=== PATIENT | male | born 1985 | race Caucasian/White ===

== ENCOUNTER 2017-05-31 18:04 | Emergency (ER) | payer OTHER ==
[~2017-05-31] VITALS: Ht 180.3 cm; Wt 70.0 kg
[2017-05-31 18:05] VITALS: TEMP 36.7; Ht 180.3 cm; Wt 70.0 kg
[2017-05-31] MEDS ORDERED: ONDANSETRON INJ 2 MG/ML 2 ML VIAL IV STA (18:14)
[2017-05-31] MEDS ORDERED: GI COCKTAIL PO STA (18:14)
[2017-05-31] MEDS ORDERED: SODIUM CHLORIDE 0.9% 1000ML 1,000 ML IV STA (18:14)
--- NOTE | 2017-05-31 18:36 | EMERGENCY ROOM VISIT NOTE ---
History Report prepared by Param: Basil Rebollar Under the Supervision of: Dr. Moi Fragoso M.D. First contact with patient: 18:09 Chief Complaint: CHEST PAIN Stated Complaint: PAIN IN CHEST,INABILITY TO EAT History of Present Illness The patient is a 32 year old male who presents to the Emergency Room with complaints of constant left sided chest pain beginning 10 weeks ago. The patient states that his pain is centralized in his lower left chest. He notes that his pain has prevented him from eating a lot for the past 10 weeks. He reports that the pain is not major, but states that the pain is enough to prevent him from eating. He notes that his pain is not mental but feels as though he has "poison in his blood stream." He reports that he has been able to drink fluids. He also complains of SOB, nausea, numbness in his left arm, and vision issues in his eyes. The patient states that he occasionally has a "light spot" right in the center of his eyes that blurs his vision. He notes chronic pain in his joints for the past few years that waxes and wanes in intensity. 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 He denies any rashes, cough, burning or bloody urine, congestion, diarrhea, and exposure to ticks. Source of History: patient Onset: 10 weeks ago Position: chest Timing: constant Modifying Factors (Worsening): eating Associated Symptoms: + SOB, + nausea, + numbness (in his left arm), No cough , No diarrhea, No urinary symptoms Note: he also complains of vision problems. he denies any congestion and rashes Review of Systems See HPI for pertinent positives and negatives. A total of ten systems were reviewed and were otherwise negative. Past Medical & Surgical Medical Problems: (1) Chronic pain Family History No pertinent family history stated. Social History Smoking Status: Never Smoker Marital Status: single Housing Status: lives with family Occupation Status: unemployed Current/Historical Medications Scheduled Doxycycline Monohydrate (Monodox), 100 MG PO BID Scheduled PRN Ibuprofen Tab (Motrin), 800 MG PO Q8H PRN for Pain Allergies Coded Allergies: No Known Allergies (Unverified , 05/31/17) Physical Exam Vital Signs Date Time Temp Pulse Resp B/P (MAP) Pulse Ox O2 Delivery O2 Flow Rate FiO2 05/31/17 23:19 72 16 126/84 97 05/31/17 22:31 80 20 127/83 97 05/31/17 21:00 93 23 126/87 95 Room Air 05/31/17 19:12 79 05/31/17 18:55 100 Room Air 05/31/17 18:47 84 18 128/82 97 Room Air 05/31/17 18:05 36.7 118 16 144/91 99 Room Air Physical Exam GENERAL: Awake, alert, in no acute distress, anxious appearing. HENT: Normocephalic, atraumatic. Oropharynx unremarkable. Dry mucous membranes. EYES: Normal conjunctiva. Sclera non-icteric. NECK: Supple. No nuchal rigidity. FROM. No JVD. RESPIRATORY: Clear to auscultation. CARDIAC: Regular rate, normal rhythm. Extremities warm and well perfused. Pulses equal. ABDOMEN: Soft, non-distended. No tenderness to palpation. No rebound or guarding. No masses. RECTAL: Deferred. MUSCULOSKELETAL: Chest examination reveals no tenderness. The back is symmetrical on inspection without obvious abnormality. There is no CVA tenderness to palpation. No joint edema. LOWER EXTREMITIES: Calves are equal size bilaterally and non-tender. No edema. No discoloration. NEURO: Normal sensorium. No sensory or motor deficits noted. SKIN: No rash or jaundice noted. Medical Decision & Procedures ER Provider Diagnostic Interpretation: Radiology results as stated below per my review and radiologist interpretation: CHEST ONE VIEW PORTABLE FINDINGS: Lung volumes are normal. Lungs are clear. No pneumothorax or pleural effusion is present. Cardiomediastinal silhouette is normal. Pulmonary vascularity is normal. IMPRESSION: No acute cardiopulmonary findings. Electronically signed by: Luis Carlos Lema M.D. 05/31/2017 6:59 PM HEAD WITHOUT CONTRAST (CT) FINDINGS: No acute intracranial hemorrhage, midline shift, mass, large territorial ischemia or abnormal extra-axial collection. The calvarium is intact. The paranasal sinuses, mastoid air cells, and middle ear cavities are clear. Focal soft tissue prominence of the right frontal scalp is seen, 2.0 x 0.8 cm with areas of internal fatty attenuation suggesting scalp lipoma. IMPRESSION: 1. No acute intracranial abnormality. 2. Focal soft tissue prominence of the right frontal scalp with fat attenuation suggests scalp lipoma. The above report was generated using voice recognition software. It may contain grammatical, syntax or spelling errors. Electronically signed by: Bimal Cason M.D. 05/31/2017 7:36 PM Laboratory Results 05/31/17 18:40 Red Blood Count 5.69, Mean Corpuscular Volume 84.7, Mean Corpuscular Hemoglobin 28.8, Mean Corpuscular Hemoglobin Concent 34.0, Mean Platelet Volume 9.7, Neutrophils (%) (Auto) 63.9, Lymphocytes (%) (Auto) 25.7, Monocytes (%) (Auto) 9.6, Eosinophils (%) (Auto) 0.4, Basophils (%) (Auto) 0.3, Neutrophils # (Auto) 4.52, Lymphocytes # (Auto) 1.82, Monocytes # (Auto) 0.68, Eosinophils # (Auto) 0.03, Basophils # (Auto) 0.02 05/31/17 18:40 Test 05/31/17 18:40 05/31/17 19:50 White Blood Count 7.08 K/uL (4.8-10.8) Red Blood Count 5.69 M/uL (4.7-6.1) Hemoglobin 16.4 g/dL (14.0-18.0) Hematocrit 48.2 % (42-52) Mean Corpuscular Volume 84.7 fL (80-100) Mean Corpuscular Hemoglobin 28.8 pg (25-34) Mean Corpuscular Hemoglobin Concent 34.0 g/dl (32-36) Platelet Count 248 K/uL (130-400) Mean Platelet Volume 9.7 fL (7.4-10.4) Neutrophils (%) (Auto) 63.9 % Lymphocytes (%) (Auto) 25.7 % Monocytes (%) (Auto) 9.6 % Eosinophils (%) (Auto) 0.4 % Basophils (%) (Auto) 0.3 % Neutrophils # (Auto) 4.52 K/uL (1.4-6.5) Lymphocytes # (Auto) 1.82 K/uL (1.2-3.4) Monocytes # (Auto) 0.68 K/uL (0.11-0.59) Eosinophils # (Auto) 0.03 K/uL (0-0.5) Basophils # (Auto) 0.02 K/uL (0-0.2) RDW Standard Deviation 37.7 fL (36.4-46.3) RDW Coefficient of Variation 12.4 % (11.5-14.5) Immature Granulocyte % (Auto) 0.1 % Immature Granulocyte # (Auto) 0.01 K/uL (0.00-0.02) Erythrocyte Sedimentation Rate 2 mm/hr (0-14) Anion Gap 9.0 mmol/L (3-11) Est Creatinine Clear Calc Drug Dose 92.9 ml/min Estimated GFR () 99.1 Estimated GFR (Non- 85.5 BUN/Creatinine Ratio 15.2 (10-20) Calcium Level 9.8 mg/dl (8.5-10.1) Total Bilirubin 0.7 mg/dl (0.2-1) Direct Bilirubin 0.2 mg/dl (0-0.2) Aspartate Amino Transf (AST/SGOT) 14 U/L (15-37) Alanine Aminotransferase (ALT/SGPT) 18 U/L (12-78) Alkaline Phosphatase 40 U/L (45-117) Troponin I < 0.015 ng/ml (0-0.045) C-Reactive Protein < 0.29 mg/dl (0-0.29) Total Protein 7.7 gm/dl (6.4-8.2) Albumin 4.8 gm/dl (3.4-5.0) Lipase 115 U/L (73-393) Thyroid Stimulating Hormone (TSH) 1.760 uIu/ml (0.300-4.500) Lyme Disease IgG Antibody POS (NEG) Urine Color YELLOW Urine Appearance CLEAR (CLEAR) Urine pH 6.0 (4.5-7.5) Urine Specific [place] 1.029 (1.000-1.030) Urine Protein NEG (NEG) Urine Glucose (UA) NEG (NEG) Urine Ketones 4+ (NEG) Urine Occult Blood NEG (NEG) Urine Nitrite NEG (NEG) Urine Bilirubin NEG (NEG) Urine Urobilinogen NEG (NEG) Urine Leukocyte Esterase NEG (NEG) Laboratory results reviewed by me Medications Administered Medications (Trade) Dose Ordered Sig/Jeny Route Start Time Stop Time Status Last Admin Dose Admin Sodium Chloride 1,000 ml @ 999 mls/hr Q1H1M STAT IV 05/31/17 18:14 05/31/17 19:14 DC 05/31/17 18:43 999 MLS/HR Famotidine (Pepcid 20mg Iv Push) 20 mg NOW STAT IV 05/31/17 18:14 05/31/17 18:25 DC 05/31/17 19:40 20 MG Ondansetron HCl (Zofran Inj) 4 mg NOW STAT IV 05/31/17 18:14 05/31/17 18:25 DC 05/31/17 18:43 4 MG Lidocaine HCl (Viscous Lidocaine 2% Soln) 20 ml STK-MED ONCE .ROUTE 05/31/17 18:41 05/31/17 18:42 DC 05/31/17 18:44 20 ML Al Hydroxide/Mg Hydroxide (Maalox Susp) 30 ml STK-MED ONCE .ROUTE 05/31/17 18:41 05/31/17 18:42 DC 05/31/17 18:44 30 ML Ketorolac Tromethamine (Toradol Inj) 30 mg NOW STAT IV 05/31/17 20:40 05/31/17 20:42 DC 05/31/17 20:52 30 MG Ceftriaxone Sodium 2000 mg/ Dextrose 70 ml @ 100 mls/hr ONE STAT IV 05/31/17 20:40 05/31/17 21:21 DC 05/31/17 20:51 100 MLS/HR ECG Indication: chest pain Rate (beats per minute): 87 Rhythm: normal sinus Findings: no acute ischemic change, other (normal axis) ED Course 1812: The patient was evaluated in room C6. A complete history and physical exam was performed. 1813: GI Cocktail 24ml PO, Zofran Inj 4mg IV, Famotidine 20mg IV 1848: I did a bedside echo and gallbladder US on the patient. The echo showed no pericardial effusion and normal LV and RV size effusion. The gallbladder US showed no gallstones or pericholecystic fluid. 2029: I reevaluated and updated the patient. He states that the body pain that he has been experiencing for the past few years has mostly been migrating joint pain. He notes that his chest pain is new. 2039: Ceftriaxone Sodium 2000mg/Dextrose 70 ml @ 100mls/hr IV, Toradol Inj 30mg IV 2210: I reevaluated the patient. Discussed results and discharge instructions: He verbalized understanding and agreement. The patient is ready for discharge. Medical Decision I reviewed the patient's past medical history, medications, and the nursing notes as described above. Differential diagnoses include: gastritis, reflux, pneumonia, bronchitis, pneumonitis, pericarditis, lyme, dehydration, electrolyte abnormality, depression, and anxiety. 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 Of note the patient reports that he is a long- standing history for years of chronic pain everywhere and is somewhat vague about the last time he did not have any pain but thinks a few months ago hes had a couple days here and there. Despite this hes never seen a doctor for his symptoms and comes to emergency department today because he feels he was worse and thought it was about time he was evaluated. Arrival the patient is anxious appearing but otherwise in no acute distress, afebrile with stable vital signs. Lungs clear to auscultation bilaterally. EKG unremarkable with normal intervals and no MO depression or ARLYN. Negative Spodick's sign. Bedside echo with no pericardial effusion, grossly normal LV and RV size and function. Bedside RUQ US negative for gallstone and negative for pericholecystic fluid. WBC, trop, ESR, CRP wnl. Thus myocarditis and pericarditis unlikely. However, Lyme screen positive and given patient's constant sx of chest burning will need cards f/u for formal echo. Cardiac CRP sent and pending. UA with ketones c/w patient clinically dry appearance. Labs otherwise unremarkable. CXR negative. Will treat for Lyme with 21 day course. Given initial IV dose of CTX in ED. CM assisting to arrange follow up given patient does not have insurance and does not have a pcp. However patient preferring to arrange f/u on his own. Parents at bedside update and are aware. Findings and plan/importance for follow-up reviewed with patient. Patient agreeable and d/c'd per discharge instructions. [place] Drug Monitoring Program Search Results: patient reviewed within database Blood Pressure Screening Patient's blood pressure: Elevated blood pressure Blood pressure disposition: Elevated BP felt to be situational Impression Primary Impression: Substernal precordial chest pain Additional Impression: Lyme disease, unspecified Scribe Attestation The scribe's documentation has been prepared under my direction and personally reviewed by me in its entirety. I confirm that the note above accurately reflects all work, treatment, procedures, and medical decision making performed by me. Departure Information Dispostion Home / Self-Care Prescriptions Ibuprofen Tab (MOTRIN) 800 Mg Tab 800 MG PO Q8H Y for Pain for 14 Days, #42 TAB Prov: Moi Fragoso M.D. 05/31/17 Doxycycline Monohydrate (Monodox) 100 Mg Cap 100 MG PO BID for 21 Days, #42 CAP Prov: Moi Fragoso M.D. 05/31/17 Forms Call Back Authorization, HOME CARE DOCUMENTATION FORM, IMPORTANT VISIT INFORMATION Patient Instructions Chest Pain - [facility], ED Chest Pain Atypical Unkn Cause, My [facility] Additional Instructions Please follow up with and establish a primary care physician and with cardiology within the next week for re-evaluation. This is very important that you call to make these appointments as you did not want our corrections caseworker to assist with this. The cause of your symptoms is not clear at this time may be due to Lyme disease. Otherwise, your exam, EKG, chest xray, CT scan of your head, and lab results did not show signs of an emergent condition at this time. Doxycycline, antibiotic, as directed for 21 days. Ibuprofen for pain as needed as directed. Drink plenty of fluids to ensure hydration. Return to the emergency department for worsening symptoms as described in the accompanying instructions. Problem Qualifiers
[2017-05-31] MEDS ORDERED: LIDOCAINE HCL 2% VISC SOLN 20 ML UDC ONE (18:41)
[2017-05-31] MEDS ORDERED: ALUMINUM/MAGNESIUM SUSP 30 ML UDC ONE (18:41)
[2017-05-31] MEDS: FAMOTIDINE 20MG/5ML IV PUSH IV STA ×2 (18:44→19:40)
[2017-05-31 18:53] LABS: BASO % 0.3 %; BASO ABS # 0.02 K/uL (0-0.2); COMPLETE YES; EOS % 0.4 %; HEMATOCRIT 48.2 % (42-52); IG% 0.1 %; LYMPH % 25.7 %; LYMPH ABS # 1.82 K/uL (1.2-3.4); MEAN CELL VOLUME 84.7 fL (80-100); MEAN CORPUSCULAR HEMOGLOBIN 28.8 pg (25-34); MEAN PLATELET VOLUME 9.7 fL (7.4-10.4); MONO % 9.6 %; NEUT % 63.9 %; PLATELET COUNT 248 K/uL (130-400); RED BLOOD COUNT 5.69 M/uL (4.7-6.1); WHITE BLOOD COUNT 7.08 K/uL (4.8-10.8)
[2017-05-31 18:55] VITALS: O2SAT 100
--- NOTE | 2017-05-31 19:01 | DIAGNOSTIC IMAGING REPORT ---
CHEST ONE VIEW PORTABLE CLINICAL HISTORY: Chest pain. COMPARISON STUDY: No previous studies for comparison. FINDINGS: Lung volumes are normal. Lungs are clear. No pneumothorax or pleural effusion is present. Cardiomediastinal silhouette is normal. Pulmonary vascularity is normal. IMPRESSION: No acute cardiopulmonary findings. Electronically signed by: Luis Carlos Lema M.D. 05/31/2017 6:59 PM Dictated Date/Time: 05/31/2017 6:58 PM
[2017-05-31 19:19] LABS: ALT/SGPT 18 U/L (12-78); BLOOD UREA NITROGEN 17 mg/dl (7-18); BUN/CREATININE RATIO 15.2 (10-20); CALCIUM 9.8 mg/dl (8.5-10.1); CARBON DIOXIDE 27 mmol/L (21-32); CHLORIDE 104 mmol/L (98-107); CREATININE 1.13 mg/dl (0.60-1.40); GLUCOSE 99 mg/dl (70-99); POTASSIUM 4.2 mmol/L (3.5-5.1); SODIUM 141 mmol/L (136-145)
[2017-05-31 19:30] LABS: ALKALINE PHOSPHATASE 40 U/L (45-117); AST/SGOT 14 U/L (15-37)
--- NOTE | 2017-05-31 19:37 | DIAGNOSTIC IMAGING REPORT ---
HEAD WITHOUT CONTRAST (CT) CLINICAL HISTORY: 32 years-old Male with blurred vision, prior AVM resection. Acute blurred vision. History of prior AVM resection. TECHNIQUE: Multiple axial CT images of the head were obtained without contrast. A dose lowering technique was utilized adhering to the principles of ALARA. CT DOSE: 537.48 mGy.cm COMPARISON: None. FINDINGS: No acute intracranial hemorrhage, midline shift, mass, large territorial ischemia or abnormal extra-axial collection. The calvarium is intact. The paranasal sinuses, mastoid air cells, and middle ear cavities are clear. Focal soft tissue prominence of the right frontal scalp is seen, 2.0 x 0.8 cm with areas of internal fatty attenuation suggesting scalp lipoma. IMPRESSION: 1. No acute intracranial abnormality. 2. Focal soft tissue prominence of the right frontal scalp with fat attenuation suggests scalp lipoma. The above report was generated using voice recognition software. It may contain grammatical, syntax or spelling errors. Electronically signed by: Bimal Cason M.D. 05/31/2017 7:36 PM Dictated Date/Time: 05/31/2017 7:32 PM
[2017-05-31 20:02] LABS: URINE APPEARANCE CLEAR (CLEAR); URINE BILIRUBIN NEG (NEG); URINE COLOR YELLOW; URINE NITRITE NEG (NEG); URINE SPECIFIC GRAVITY 1.029 (1.000-1.030); UROBILINOGEN NEG (NEG); ZZUR CULT IF INDIC CLEAN CATCH NO
[2017-05-31 20:05] LABS: MANUAL MICROSCOPIC REQUIRED? NO; REVIEW REQ? NO
[2017-05-31 20:19] LABS: LYME DISEASE AB IGG POS (NEG); LYME DISEASE AB IGM EQUIVOCAL (NEG)
[2017-05-31] MEDS ORDERED: KETOROLAC TROMETHAMINE 30 MG/ML VIAL IV STA (20:40)
[2017-05-31] MEDS ORDERED: CEFTRIAXONE SOD INJ 2,000 MG in DEXTROSE 5% 50ML 50 ML IV STA (20:40)
[2017-05-31] MEDS ORDERED: DOXY100C76 PO (22:00)
[2017-05-31] MEDS ORDERED: IBUP-1451 PO (22:01)
[2017-05-31 23:19] VITALS: BP 126/84; PULSE 72; O2SAT 97
[2017-06-02 10:00] LABS: C-REACTIVE PROT HIGHSEN 0.4 MG/L
[2017-06-02] MEDS ORDERED: ZNTT/150 PO (21:32)
[2017-06-02] MEDS ORDERED: PRT/20 PO (21:32)
[2017-06-06 15:59] LABS: 18KDIGG BAND REACTIVE (NONREACTIVE); 23KDIGG BAND REACTIVE (NONREACTIVE); 23KDIGM BAND REACTIVE (NONREACTIVE); 28KDIGG BAND REACTIVE (NONREACTIVE); 30KDIGG BAND NONREACTIVE (NONREACTIVE); 39KDIGG BAND REACTIVE (NONREACTIVE); 39KDIGM BAND NONREACTIVE (NONREACTIVE); 41KDIGG BAND REACTIVE (NONREACTIVE); 41KDIGM BAND NONREACTIVE (NONREACTIVE); 45KDIGG BAND REACTIVE (NONREACTIVE); 58KDIGG BAND REACTIVE (NONREACTIVE); 66KDIGG BAND REACTIVE (NONREACTIVE); 93KDIGG BAND REACTIVE (NONREACTIVE)
== END 2017-05-31 23:20 | disposition home or self-care (01) ==
LOC: C.EDB 18:05 → C.EDC 23:20
DX: R07.2 Precordial pain (principal); A69.20 Lyme disease, unspecified; G89.29 Other chronic pain

== ENCOUNTER 2017-06-06 10:38 | Inpatient (IN) | payer OTHER ==
[~2017-06-06] VITALS: Ht 180.3 cm; Wt 67.9 kg
[~2017-06-06 10:38] MED LIST: DOXY100C76 PO; IBUP-1451 PO; PRT/20 PO; ZNTT/150 PO
--- NOTE | 2017-06-06 11:22 | EMERGENCY ROOM VISIT NOTE ---
History Report prepared by Param: Iona Newton Under the Supervision of: Dr. Neftali Cloud M.D. First contact with patient: 11:01 Chief Complaint: MENTAL HEALTH EVALUATION Stated Complaint: SUICIDAL, HEART History of Present Illness The patient is a 32 year old male who presents to the Emergency Room with complaints of intermittent anxiety that began several weeks ago. The patient states that 10 weeks ago he had a trigger and notes increased stress. He states that over the past several weeks he states that things have become overwhelming for him. The patient states that he feels defeated and has lost the will to live. He states that he has been taking all his medications as prescribed. The patient describes four different episodes of anxiety going back several weeks. He reports that with each episode he notes a heavy stress and strain on his heart. The patient states that the first one lasted five minutes and notes that he was breathing heavily. He states that he did not see anyone for the symptoms. The patient states that he additionally noticed left arm numbness at that time. He states that his second episode was on Tuesday noting that he was outside with his dogs. The patient states that this episode lasted 5-10 minutes. He states that he also had an episodes that occurred on Tuesday and Tuesday and notes that each of these episodes were longer. The patient states that he feels exhausted after each episode. He states that he does not feel safe going home, noting that he would hang himself, noting that he has no access to firearms. The patient denies any diagnosis of anxiety or depression. He states that he does feel secure around people. Per records, the patient was here on May 31 for chest pain and had a negative work up except for possible lyme disease. He was also here on June 02 for shortness of breath with a negative work up. He is on Doxycycline for the possibility of Lyme Disease--the confirmative testing is still pending. Source of History: patient Onset: several weeks ago Position: other (global) Quality: other (anxiety) Timing: other (persistent) Note: Associated Symptoms: suicidal with plan to hang himself, increased stress, chest heaviness Review of Systems See HPI for pertinent positives & negatives. A total of 10 systems reviewed and were otherwise negative. Past Medical & Surgical Medical Problems: (1) Anxiety (2) Chronic pain (3) Lyme disease (4) Suicidal ideation Family History Patient reports no known family medical history. Social History Smoking Status: Never Smoker Drug Use: none Marital Status: single Housing Status: lives with family Occupation Status: unemployed Current/Historical Medications Scheduled Doxycycline Monohydrate (Monodox), 100 MG PO BID Scheduled PRN Ibuprofen Tab (Motrin), 800 MG PO Q8H PRN for Pain Pantoprazole (Protonix), 20 MG PO DAILY PRN for ACID REFLUX Ranitidine Hcl (Zantac), 150 MG PO BID PRN for ACID REFLUX Allergies Coded Allergies: No Known Allergies (Unverified , 06/06/17) Physical Exam Vital Signs Date Time Temp Pulse Resp B/P (MAP) Pulse Ox O2 Delivery O2 Flow Rate FiO2 06/06/17 13:25 90 18 126/86 99 Room Air 06/06/17 10:41 37.0 109 18 145/114 100 Room Air Physical Exam GENERAL: Patient is in no acute distress. HEENT: No acute trauma, normocephalic atraumatic, mucous membranes moist, no nasal congestion, no scleral icterus. NECK: No stridor, no adenopathy, no meningismus, trachea is midline. LUNGS: Clear to auscultation bilaterally, no wheeze, no rhonchi, breath sounds equal. HEART: Without murmurs gallops or rubs, regular rate and rhythm. ABDOMEN: Soft, nontender, bowel sounds positive, no hernias, no peritonitis. EXTREMITIES: No cyanosis or edema, full range of motion of all the joints without pain or difficulty, no signs for acute trauma. NEUROLOGIC: Oriented x 3, no acute motor or sensory deficits, no focal weakness. SKIN: No rash, no jaundice, no diaphoresis. PSYCH: Anxious, admits to suicidal ideation with a plan to hang himself. Medical Decision & Procedures Laboratory Results 06/06/17 11:24 06/06/17 11:24 Test 06/06/17 11:00 06/06/17 11:24 Urine Color YELLOW Urine Appearance CLOUDY (CLEAR) Urine pH >= 9.0 (4.5-7.5) Urine Specific [place] 1.027 (1.000-1.030) Urine Protein NEG (NEG) Urine Glucose (UA) NEG (NEG) Urine Ketones 1+ (NEG) Urine Occult Blood NEG (NEG) Urine Nitrite NEG (NEG) Urine Bilirubin NEG (NEG) Urine Urobilinogen NEG (NEG) Urine Leukocyte Esterase TRACE (NEG) Urine WBC (Auto) 1-5 /hpf (0-5) Urine RBC (Auto) 0-4 /hpf (0-4) Urine Hyaline Casts (Auto) 0 /lpf (0-5) Urine Epithelial Cells (Auto) 0-5 /lpf (0-5) Urine Bacteria (Auto) NEG (NEG) Urine Opiates Screen NEG (NEG) Urine Methadone, Qualitative NEG (NEG) Urine Barbiturates NEG (NEG) Urine Phencyclidine (PCP) Level NEG (NEG) Ur Amphetamine/Methamphetamine NEG (NEG) MDMA (Ecstasy) Screen NEG (NEG) Urine Benzodiazepines Screen NEG (NEG) Urine Cocaine Metabolite NEG (NEG) Urine Marijuana (THC) NEG (NEG) Red Blood Count 5.60 M/uL (4.7-6.1) Mean Corpuscular Volume 85.5 fL (80-100) Mean Corpuscular Hemoglobin 29.8 pg (25-34) Mean Corpuscular Hemoglobin Concent 34.9 g/dl (32-36) RDW Standard Deviation 39.0 fL (36.4-46.3) RDW Coefficient of Variation 12.4 % (11.5-14.5) Mean Platelet Volume 10.2 fL (7.4-10.4) Anion Gap 6.0 mmol/L (3-11) Est Creatinine Clear Calc Drug Dose 93.8 ml/min Estimated GFR () 101.3 Estimated GFR (Non- 87.4 BUN/Creatinine Ratio 14.6 (10-20) Calcium Level 9.6 mg/dl (8.5-10.1) Total Bilirubin 0.6 mg/dl (0.2-1) Aspartate Amino Transf (AST/SGOT) 9 U/L (15-37) Alanine Aminotransferase (ALT/SGPT) 17 U/L (12-78) Alkaline Phosphatase 45 U/L (45-117) Total Protein 7.8 gm/dl (6.4-8.2) Albumin 4.7 gm/dl (3.4-5.0) Globulin 3.1 gm/dl (2.5-4.0) Albumin/Globulin Ratio 1.5 (0.9-2) Thyroid Stimulating Hormone (TSH) 0.727 uIu/ml (0.300-4.500) Salicylates Level < 1.7 mg/dl (2.8-20) Acetaminophen Level < 2 ug/ml (10-30) Ethyl Alcohol mg/dL < 3.0 mg/dl (0-3) Laboratory results reviewed by me. ED Course 1103: The patient was evaluated in room A6. A complete history and physical exam was performed. 1229: The patient is medically clear for further psychiatric evaluation. 1340: The patient has been accepted to [facility] for further mental health evaluation and treatment. Medical Decision The patient is a 32 year old male who presents to the ED with complaints of anxiety. Differential diagnoses considered include Suicidal ideation, thyroid disorder, drug and alcohol abuse, psychosis, anxiety, electrolyte imbalance. There is no leukocytosis or concerning anemia. No significant electrolyte abnormality, kidney failure or hepatitis. The patient appears to be in a euthyroid state. Urine tox is negative. Urinalysis does not show infection. Alcohol, aspirin and Tylenol levels are essentially undetectable. The patient resents with what sounds like anxiety and panic. He has worsened over the last few days and is now suicidal. He has a plan to hang himself. The patient is voluntary, I do think he is medically clear for a psychiatric evaluation. The patient was seen by the psychiatry team, he is being hospitalized on the 3 S. psychiatric floor. He has been cooperative during his ER stay. Medication Reconcilliation Current Medication List: was personally reviewed by me Impression Primary Impression: Suicidal ideation Additional Impression: Anxiety Scribe Attestation The scribe's documentation has been prepared under my direction and personally reviewed by me in its entirety. I confirm that the note above accurately reflects all work, treatment, procedures, and medical decision making performed by me. Departure Information Dispostion Mental Health Acute Care Referrals No Doctor, Assigned (PCP) Problem Qualifiers
[2017-06-06 11:32] LABS: URINE APPEARANCE CLOUDY (CLEAR); URINE BILIRUBIN NEG (NEG); URINE COLOR YELLOW; URINE EPITHELIAL CELL AUTO 0-5 /lpf (0-5); URINE NITRITE NEG (NEG); URINE PH >= 9.0 (4.5-7.5); URINE SPECIFIC GRAVITY 1.027 (1.000-1.030); UROBILINOGEN NEG (NEG); ZZUR CULT IF INDIC CLEAN CATCH NO
[2017-06-06 11:37] LABS: MANUAL MICROSCOPIC REQUIRED? NO; REVIEW REQ? NO
[2017-06-06 11:46] LABS: HEMATOCRIT 47.9 % (42-52); MEAN CELL VOLUME 85.5 fL (80-100); MEAN CORPUSCULAR HEMOGLOBIN 29.8 pg (25-34); MEAN CORPUSCULAR HGB CONC 34.9 g/dl (32-36); MEAN PLATELET VOLUME 10.2 fL (7.4-10.4); PLATELET COUNT 259 K/uL (130-400); WHITE BLOOD COUNT 5.48 K/uL (4.8-10.8)
[2017-06-06 12:04] LABS: BENZODIAZEPINE, URINE NEG (NEG); COCAINE,URINE NEG (NEG); PHENCYCLIDINE, URINE NEG (NEG)
[2017-06-06 12:05] LABS: BUN/CREATININE RATIO 14.6 (10-20); CALCIUM 9.6 mg/dl (8.5-10.1); CREATININE 1.11 mg/dl (0.60-1.40)
[2017-06-06 12:15] LABS: ALB/GLOB RATIO 1.5 (0.9-2); THYROID STIMULATING HORMONE 0.727 uIu/ml (0.300-4.500)
[2017-06-06 12:18] LABS: ACETAMINOPHEN < 2 ug/ml (10-30)
[2017-06-06] MEDS ORDERED: RANI150T3 PO (12:27)
[2017-06-06] MEDS ORDERED: PRT/20 PO (12:27)
[2017-06-06] MEDS ORDERED: BISMUTH SUBSALICYLATE PER ML OMNICELL CHARGE PO PRN (13:30)
[2017-06-06] MEDS ORDERED: ALUMINUM/MAGNESIUM SUSP 30 ML UDC PO PRN (13:30)
[2017-06-06] MEDS ORDERED: SODIUM CHLORIDE 0.65% NA SOLN 45 ML (OCEAN) PRN (13:30)
[2017-06-06] MEDS ORDERED: ACETAMINOPHEN 325 MG TAB PO PRN (13:30)
[2017-06-06] MEDS ORDERED: hydrOXYzine HCL 25 MG TAB PO PRN (13:30)
[2017-06-06] MEDS ORDERED: MAGNESIUM HYDROXIDE SUSP 30 ML UDC PO PRN (13:30)
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
[2017-06-06 14:15] VITALS: O2SAT 97
[2017-06-06] MEDS ORDERED: IBUPROFEN 800 MG TAB PO PRN (15:00)
[2017-06-06 15:52] VITALS: BP 122/90; PULSE 88; TEMP 37; BMI 20.9
[2017-06-06] MEDS: hydrOXYzine HCL 25 MG TAB PO PRN (16:49)
[2017-06-06 17:30] VITALS: BP 138/87; PULSE 96
[2017-06-06] MEDS: DOXYCYCLINE HYCLATE 100 MG CAP PO SCH (20:31)
[2017-06-06] MEDS ORDERED: RANITIDINE HCL 150 MG TAB PO PRN (22:00)
[2017-06-07] MEDS: hydrOXYzine HCL 25 MG TAB PO PRN ×2 (06:22→12:14)
[2017-06-07 06:48] VITALS: BP_SYST 127; BP_SYST 136; BP_DIAS 87; BP_DIAS 90; PULSE 108; PULSE 96; TEMP 36.5
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
[2017-06-07] MEDS: DOXYCYCLINE HYCLATE 100 MG CAP PO SCH ×2 (09:38→22:34)
[2017-06-07] MEDS ORDERED: LORAZEPAM 1 MG TAB PO PRN (13:30)
[2017-06-07] MEDS: LORAZEPAM 0.5 MG TAB PO PRN ×2 (13:40→22:39)
--- NOTE | 2017-06-07 16:46 | Pharmacy Progress Note ---
ED Pharmacist Culture FollowUp Date of Service: Jun 07, 2017. Patient was sent home with a prescription for doxycycline, which should cover for the positive lymes result. Of note, the patient is now inpatient and continues on doxy course as per MD note. Charge nurse also called and informed nurse of the result.
[2017-06-07] MEDS: TRAZODONE HCL 50 MG TAB PO SCH (22:34)
[2017-06-08 06:51] VITALS: BP_SYST 121; BP_SYST 125; BP_DIAS 87; BP_DIAS 88; PULSE 109; PULSE 112; TEMP 36.5
[2017-06-08] MEDS: DOXYCYCLINE HYCLATE 100 MG CAP PO SCH ×2 (08:30→21:47)
[2017-06-08] MEDS: LORAZEPAM 0.5 MG TAB PO PRN ×2 (08:30→21:34)
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
[2017-06-08] MEDS: TRAZODONE HCL 50 MG TAB PO SCH (21:33)
[2017-06-09] MEDS: LORAZEPAM 0.5 MG TAB PO PRN ×2 (06:37→13:12)
[2017-06-09 06:41] VITALS: BP_SYST 116; BP_SYST 119; BP_DIAS 76; BP_DIAS 77; PULSE 106; PULSE 85; TEMP 36.7
[2017-06-09] MEDS ORDERED: SERTRALINE HCL 50 MG TAB PO SCH (09:00)
[2017-06-09] MEDS: DOXYCYCLINE HYCLATE 100 MG CAP PO SCH ×2 (09:05→22:45)
--- NOTE | 2017-06-09 14:13 | Psychiatric Progress Notes ---
Progress Note Date of Service Jun 09, 2017. Interval History Manpreet Yuan is a 32-year-old male who currently lives in [place], has no psychiatric history, and presented to the emergency room requesting psychiatric admission for stress, anxiety, and suicidal thoughts. He was admitted on a 201 voluntary commitment. Chief Complaint "I think that all of my feelings about being sick for the past six years is coming out". Subjective Patient was seen & assessed interval progress reviewed with Treatment Team. I met with the patient individually in order to assess his current mental status, review his treatment plan, make any necessary adjustments in his treatment regimen, and address any questions and concerns that may arise. Yesterday, with the patient's permission, I spoke with the patient's father regarding his Lyme disease test results, and the recommended treatment plan. The patient's father is clearly anxious, and an underlying concern seems to be the fact that the patient's psychiatric illness occurs within the context of an older brother who has been diagnosed with schizophrenia. The patient, himself, also acknowledges that he has a similar concern, although he is aware that he does not have any first rank symptoms of schizophrenia. Today, the patient is able to more fully described his feelings of depression and sadness. Previously, he had been reluctant to suggest that there is anything wrong with him other than "physical problems." Today, he tells me that he is coming to realize how depressed he has been, and he notes that his depressed mood certainly occurs within the context of multiple physical problems, but is definitely a condition that requires treatment. Although he says that he is not feeling much different , he continues to note that lorazepam helps with his severe anxiety and although not completely. He agreed to take sertraline 25 mg this morning and has not had any side effects which he is aware so far. We discussed his Lyme disease results, and the fact that we are planning to request a infectious disease consultation given the fact that the patient's depression occurs within the context of what sounds like a six-year history of Lyme disease. Perhaps as a function of his anxiety, the patient repeatedly requests detailed information concerning exactly what is likely to happen during an infectious disease consultation. He, for example, wants to know how long it will take, the extent of the physical examination that will be required, the exact location of the consultation, etc. He explains this by saying, "I parents will want to know the details, and so I would like to be able to tell them so they won't be nervous." The patient continues to say that unless his mood and physical condition improved, he will continue to see suicide as a reasonable option. He contracts for safety in the hospital, but tells me that he does not wish to leave the hospital and tell he feels better and his suicidal thoughts have resolved. The patient reports that he has been sleeping well and response to trazodone 50 mg at bedtime, and he is not experiencing excess sedation in the morning. He is, however, feeling particularly sad in the mornings, notes that the feelings of sadness don't go away, but may improve over time during the day. I explained that this is a common pattern in depression. The patient also notes that his appetite has improved somewhat, and he has been better able to eat, although he continues to experience some degree of epigastric "pressure " ("it's not really a pain, just a pressure that keeps me from eating," the patient states). Review of Systems Constitutional: No fever, No chills, No sweats, No weight loss, No weakness, No fatigue, No problem reported ENT: No hearing loss, No unusual epistaxis, No nasal symptoms, No sore throat, No tinnitus, No dental problems, No trouble swallowing, No problem reported Respiratory: No cough, No sputum, No wheezing, No shortness of breath, No dyspnea on exertion, No dyspnea at rest, No hemoptysis, No problem reported Cardiovascular: No chest pain, No orthopnea, No PND, No edema, No claudication , No palpitations, No problem reported Abdomen: + problem reported (The patient continues to experience a sensation of "pressure" in his epigastric region, and he notes that this pressure sometimes makes it hard for him to eat. However, he does not have difficulty swallowing, does not regurgitate his food, and says that he does not experience [place]," or other pain related to this general pressure which is very vaguely described.) Musculoskeletal: + joint pain, + muscle pain Neurologic: No memory loss, No paralysis, No weakness, No numbness/tingling, No vertigo, No balance problems, No problem reported Psychiatric: + depression symptoms, + anxiety Integumentary: No rash, No itch, No new/changing skin lesions, No color change , No bleeding, No problem reported Sleep Information Total Hours of Sleep: 7.00 Meal Information Percent of Breakfast Consumed: 100 Percent of Lunch Consumed: 100 Percent of Dinner Consumed: 50 Mental Status Exam During interview pt is: alert and oriented, cooperative Appearance: appropriately dressed, appropriately groomed, other (large bump and scar on his right forehead) Eye contact is: good Motor behavior is: steady gait & station, psychomotor agitation (fidgeting) Speech: other (The patient's voice is delivered at a soft volume.) Affect: depressed (although today he jokes about, and smiles appropriately on 2 occasions.), anxious Mood is: depressed, anxious (although he reports that his anxiety has diminished significantly since beginning Ativan) Thought process: circumstantial Thought content: preoccupation (with his somatic symptoms) Suicidal thought are: present (the patient has what might be referred to as future conditional suicidal thoughts. He says that he might consider suicide in the future if his physical symptoms and related limitations don't improve. He denies current suicidal thoughts.), Plan: denied Homicidal thoughts are: denied Hallucinations: denies auditory, denies visual Cognition: memory grossly intact, attention grossly intact, language grossly intact Intelligence estimated to be: consistent with level of education, above average Insight: fair Judgement: fair Impression This 32-year-old patient has been recently diagnosed with Lyme disease, and his history suggests that the symptoms of Lyme disease of been present for at least the past 6 years. Within this context, and in consideration of the fact that his multiple physical complaints have substantially interfered with his ability to function in a number spheres, he is also quite depressed and anxious. It is not clear to what degree his depression and anxiety may be a function of Lyme disease, but those illnesses may be unrelated, or they may be a function of his response to his present circumstances. In any event, the patient is now willing to accept that he will require treatment for both depression and anxiety. He tolerated the first dose of sertraline today at 25 mg without noted side effects, and the plan today will be to increase his dose of sertraline to 50 mg. He also says that he has gotten "a lot of relief" from his anxiety symptoms with the use of lorazepam 0.5 mg every 6 hours when necessary anxiety, although he clearly remains quite anxious and fretful. A, we will increase his dose of lorazepam to 1 mg by mouth 3 times a day as a standing dose order. The patient is aware of the habituation potential, and understands that the goal will be to use lorazepam temporarily until he is adequately covered with an SSRI. The patient remains suicidal, but is able to contract for safety in the hospital. We planned ask for an infectious disease consultation for ongoing treatment recommendations and, possibly, to rule out central nervous system involvement. Plan (1) Anxiety Most likely diagnosis is panic disorder, although at this point cannot rule out anxiety due to general medical condition (Lyme disease). Also rule out major depressive disorder. Get collateral information from family (regarding his adult life, previous level of functioning prior to the past 10 weeks, they're understanding of why he has not been able to work for the past 6 years, if there was any worsening of symptoms after his head injury 13 years ago, and clarification of recent stressors, specifically why he was asked to stop volunteering). Family meeting with parents. They will need to be involved in discharge safety planning as well. We briefly discussed medication options for panic, specifically an SSRI antidepressant. The patient would like to try nonpharmacologic methods of handling his anxiety first. Refer for outpatient therapy and psychiatric follow -up. Hydroxyzine as needed for sleep and anxiety. Encourage participation in unit groups and programming. Work on healthy coping skills. 06/07 -Patient continues to report high anxiety and poor sleep. He continues to refuse a trial of an SSRI, although he has been educated repeatedly about the risks, benefits and side effects. Provided him with an Up To Date patient handout about SSRIs and encouraged him to continue to educate himself and ask questions. If he agrees, will start escitalopram 10mg. -Reviewed behavioral techniques he can utilize to manage anxiety. Avoiding benzos if possible, as patient states he does not want medication that will be sedating, but he has worsened throughout the day today and has approached staff multiple times asking for something prn for anxiety, doesn't feel hydroxyzine worked, so will try lorazepam 0.5mg q 6 hrs prn. -Patient is requesting a different medication for sleep. We reviewed the risks , benefits, and side effects of trazodone, including priapism, and he agreed to a trial. I will order 50 mg daily at bedtime tonight, which can be repeated once if needed. 06/08/17 -The patient reports that he has responded favorably to Ativan, but remains anxious. He has had no further panic episodes, however, we spent a great deal of time discussing a trial of SSRI, and today the patient tells me that he is inclined to try sertraline, prefers wishes to discuss this decision with his parents. I was able to speak with the patient's father about this recommendation, and the patient's father was in agreement with the plan to use an SSRI, but wished to do some "online research" first. - The patient tells me that he slept well with trazodone, and finds this to be a helpful medication. 06/09/17. -- The patient reports that he has had no further panic attacks. He also reports that he received substantial relief, but not complete relief, from lorazepam 0.5 mg every 6 hours. He says that he is asking for it routinely 3 times a day, but does not require it during the night. The plan is to address the patient's depression and anxiety in a 2 pronged approach: Address the possible infectious disease component secondary to Lyme disease, and treat both the depression and anxiety with an SSRI (sertraline), together with lorazepam while we are titrating the dose of sertraline. (2) Suicidal ideation Every 15 minute checks for safety. Work on healthy coping skills and discharge safety plan. 06/08/17 - Today, the patient says that he is not having active suicidal thoughts, but continues to say that he considers suicide to be an option in the event that his feelings of anxiety, depression, and his various physical complaints don't improve over time. I was able to help him understand that this is "a bad time that will pass," and that "things will get better." The patient said that this was reassuring and that he hopes one day to be able to talk to other people who are going through similar experiences in order to help them. He agrees to notify staff should he develop any active suicidal thoughts. He does not have any specific plan for suicide at this point. 06/09/17. - The patient endorses what he refers to his overwhelming feelings of sadness, combined with high levels of anxiety, and multiple ongoing arthralgias and myalgias which are believed to be secondary to Lyme disease in his case. Today , he tells me that without substantial relief from his symptoms of depression, anxiety and physical complaints he will act on his thoughts of committing suicide although he contracts for safety in the hospital and says "I wouldn't do anything while I'm under treatment here." The patient clearly continues to require inpatient psychiatric hospitalization (3) Lyme disease Continue home dose of doxycycline, and follow-up with outpatient provider as directed by emergency room staff. He does not have a PCP, and states his parents were working on getting him medical assistance. 06/08/17 - Both the [facility] and the Western blot tests have come back positive for Lyme disease. The patient is taking doxycycline 100 mg twice a day. I let him know that it is possible that his depression, and to a lesser extent, his anxiety may be attributable to Lyme disease. However, he has had his physical symptoms for at least 6 years, and his symptoms of anxiety have emerged largely in the past 11 weeks, circumstance which suggests that there is more going on clinically than simply complications of Lyme disease. 06/09/17. - Her plan is to obtain an infectious disease consultation in order to receive recommendations for treatment, as necessary, following his planned three-week course of doxycycline. Also like to rule out, if possible, central nervous system involvement. Discharge / Aftercare Planning Therapist: Name: None Homicide Squad Sergeant: Name: None Visit Code E&M Code: 75384 Inventory Assets Strengths: Has housing, supportive family Needs: Anxiety. Depression. Lyme Disease with multiple physical complaints. Social isolation. Risk Factors Assessment Male: Yes : Yes /single/: Yes Higher / Fall in social status: Yes Health problems: Yes Mental Health Diagnoses: Yes Substance use disorders: No Previous attempt: No Previous psychiatric stay: No Hopelessness: Yes Smoker: No Protective Factors Assessment Gnosticist beliefs: No : No Responsible for young children: No Employed: No Stable relationships: No Supportive family: Yes Good rapport with provider: No Data Vital Signs Last 24 Hrs: Date Time Temp Pulse Resp B/P (MAP) Pulse Ox O2 Delivery O2 Flow Rate FiO2 06/09/17 06:41 36.7 85 16 119/76 106 116/77 Meds Administered Last 24 Hrs: Meds Administered (Past 24Hrs) Medications (Trade) Dose Ordered Sig/Jeny Route Start Time Stop Time Status Last Admin Dose Admin Trazodone HCl (Desyrel Tab) 50 mg HS PO 06/07/17 22:00 07/07/17 21:59 06/08/17 21:33 50 MG Sertraline HCl (Zoloft Tab) 25 mg QAM PO 06/09/17 09:00 06/09/17 13:55 DC 06/09/17 09:05 25 MG
[2017-06-09] MEDS: LORAZEPAM 1 MG TAB PO SCH (22:45)
[2017-06-09] MEDS: TRAZODONE HCL 50 MG TAB PO SCH (22:45)
[2017-06-10 06:35] VITALS: BP_SYST 125; BP_SYST 129; BP_DIAS 77; BP_DIAS 94; PULSE 77; PULSE 96; TEMP 36.5
[2017-06-10] MEDS: DOXYCYCLINE HYCLATE 100 MG CAP PO SCH ×2 (07:58→22:55)
[2017-06-10] MEDS: LORAZEPAM 1 MG TAB PO SCH ×3 (07:58→22:55)
[2017-06-10] MEDS: SERTRALINE HCL 50 MG TAB PO SCH (07:59)
--- NOTE | 2017-06-10 12:16 | Psychiatric Progress Notes ---
Progress Note Date of Service Jun 10, 2017. Interval History Manpreet Yuan is a 32-year-old male who currently lives in [place], has no psychiatric history, and presented to the emergency room requesting psychiatric admission for stress, anxiety, and suicidal thoughts. He was admitted on a 201 voluntary commitment. Chief Complaint "I'm still depressed, but maybe a little better". Subjective Patient was seen & assessed interval progress reviewed with Treatment Team. I met with the patient individually this morning in order to assess his current mental status, review his treatment plan with him, and address any issues and concerns that may arise. The patient begins by telling me that although he slept well last night, he woke up feeling depressed and anxious. He reports that the anxiety improves significantly when he took his morning dose of medications, and he notes that overall his mood may be "a little bit better." He has had no further panic episodes, and we note that the patient has been more outgoing and is forming friendships in the milieu. Today, we were able to process a number of issues related to his sense of loss and "failure to launch. " He is notes that he has lost friendships, and the age of 32 feels that he is almost and suspended animation after losing so many years because of physical problems. Of note is the fact that the patient says that his myalgias and arthralgias have improved, particularly in his hips and lower extremities. His appetite is also been "better," and he has gained approximate 2 pounds since entering the hospital. The patient reiterates that he has no plan to act on his suicidal thoughts in the hospital, and says that his real concern is that he will not be able to tolerate returning to his home without becoming suicidal , unless his mood improves more significantly. Dr. Charis Smith spoke today with a Dr. Agosto, Infectious Disease, who has reviewed the patient's case and is recommending an additional month of doxycycline administration of the current dose of 100 mg twice a day. She is also recommending follow-up evaluation following discharge if the patient's symptoms do not resolve. Sleep Information Total Hours of Sleep: 6.50 Meal Information Percent of Breakfast Consumed: 50 Percent of Lunch Consumed: 100 Percent of Dinner Consumed: 50 Mental Status Exam During interview pt is: alert and oriented, cooperative Appearance: appropriately dressed, appropriately groomed, other (large bump and scar on his right forehead) Eye contact is: good Motor behavior is: steady gait & station, psychomotor agitation (fidgeting) Speech: other (The patient's voice is delivered at a soft volume.) Affect: depressed (The patient appears slightly brighter and less anxious, but his affect clearly remains depressed.), anxious Mood is: depressed, anxious (He notes that his anxiety is now well controlled and he has had no panic episodes.) Thought process: linear, logical (The patient today is less obsessive.), clear , coherent Thought content: preoccupation (with his somatic symptoms) Suicidal thought are: present (the patient has what might be referred to as future conditional suicidal thoughts. He says that he might consider suicide in the future if his physical symptoms and related limitations don't improve. He denies current suicidal thoughts.), Plan: denied Homicidal thoughts are: denied Hallucinations: denies auditory, denies visual Cognition: memory grossly intact, attention grossly intact, language grossly intact Intelligence estimated to be: consistent with level of education, above average Insight: fair Judgement: fair Impression Today, the patient reports some small improvement in his mood. He has been able to tolerate sertraline 50 mg daily, and we will "hold" at this dose for the next few days, and then consider increasing the dose as tolerated 200 mg daily, as indicated. The patient also reports that he feels that his anxiety is under fairly good control at his current dose of Ativan, and he says that the increased dose has helped considerably. Contrary to the patient's assertion at the time of admission, the patient is now saying that he realizes that his depression and anxiety are a greater problem than his physical symptoms , and he is eager to continue treatment for both depression/anxiety and Lyme disease.. Plan (1) Anxiety Most likely diagnosis is panic disorder, although at this point cannot rule out anxiety due to general medical condition (Lyme disease). Also rule out major depressive disorder. Get collateral information from family (regarding his adult life, previous level of functioning prior to the past 10 weeks, they're understanding of why he has not been able to work for the past 6 years, if there was any worsening of symptoms after his head injury 13 years ago, and clarification of recent stressors, specifically why he was asked to stop volunteering). Family meeting with parents. They will need to be involved in discharge safety planning as well. We briefly discussed medication options for panic, specifically an SSRI antidepressant. The patient would like to try nonpharmacologic methods of handling his anxiety first. Refer for outpatient therapy and psychiatric follow -up. Hydroxyzine as needed for sleep and anxiety. Encourage participation in unit groups and programming. Work on healthy coping skills. 06/07 -Patient continues to report high anxiety and poor sleep. He continues to refuse a trial of an SSRI, although he has been educated repeatedly about the risks, benefits and side effects. Provided him with an Up To Date patient handout about SSRIs and encouraged him to continue to educate himself and ask questions. If he agrees, will start escitalopram 10mg. -Reviewed behavioral techniques he can utilize to manage anxiety. Avoiding benzos if possible, as patient states he does not want medication that will be sedating, but he has worsened throughout the day today and has approached staff multiple times asking for something prn for anxiety, doesn't feel hydroxyzine worked, so will try lorazepam 0.5mg q 6 hrs prn. -Patient is requesting a different medication for sleep. We reviewed the risks , benefits, and side effects of trazodone, including priapism, and he agreed to a trial. I will order 50 mg daily at bedtime tonight, which can be repeated once if needed. 06/08/17 -The patient reports that he has responded favorably to Ativan, but remains anxious. He has had no further panic episodes, however, we spent a great deal of time discussing a trial of SSRI, and today the patient tells me that he is inclined to try sertraline, prefers wishes to discuss this decision with his parents. I was able to speak with the patient's father about this recommendation, and the patient's father was in agreement with the plan to use an SSRI, but wished to do some "online research" first. - The patient tells me that he slept well with trazodone, and finds this to be a helpful medication. 06/09/17. -- The patient reports that he has had no further panic attacks. He also reports that he received substantial relief, but not complete relief, from lorazepam 0.5 mg every 6 hours. He says that he is asking for it routinely 3 times a day, but does not require it during the night. The plan is to address the patient's depression and anxiety in a 2 pronged approach: Address the possible infectious disease component secondary to Lyme disease, and treat both the depression and anxiety with an SSRI (sertraline), together with lorazepam while we are titrating the dose of sertraline. 06/10/17 -- The patient reports significantly reduced anxiety, and attributes this improvement to a combination of sertraline and lorazepam. He has had no further panic episodes, and finds that his levels of anxiety or now manageable. He understands that the goal is to eventually taper and discontinue lorazepam wants he is at a standard dose of sertraline. We are proceeding carefully with sertraline because of the patient's various physical complaints, and we want to avoid side effects that may discourage the patient from adherence. (2) Suicidal ideation Every 15 minute checks for safety. Work on healthy coping skills and discharge safety plan. 06/08/17 - Today, the patient says that he is not having active suicidal thoughts, but continues to say that he considers suicide to be an option in the event that his feelings of anxiety, depression, and his various physical complaints don't improve over time. I was able to help him understand that this is "a bad time that will pass," and that "things will get better." The patient said that this was reassuring and that he hopes one day to be able to talk to other people who are going through similar experiences in order to help them. He agrees to notify staff should he develop any active suicidal thoughts. He does not have any specific plan for suicide at this point. 06/09/17. - The patient endorses what he refers to his overwhelming feelings of sadness, combined with high levels of anxiety, and multiple ongoing arthralgias and myalgias which are believed to be secondary to Lyme disease in his case. Today , he tells me that without substantial relief from his symptoms of depression, anxiety and physical complaints he will act on his thoughts of committing suicide although he contracts for safety in the hospital and says "I wouldn't do anything while I'm under treatment here." The patient clearly continues to require inpatient psychiatric hospitalization 06/10/17 - The patient tells me that he is not currently having suicidal thoughts, but feels that were he to return to the community at this point the suicidal thoughts with intent would potentially recur, in the absence of substantial improvement in his overwhelming feelings of depression, combined with ongoing myalgias and arthralgias. (3) Lyme disease Continue home dose of doxycycline, and follow-up with outpatient provider as directed by emergency room staff. He does not have a PCP, and states his parents were working on getting him medical assistance. 06/08/17 - Both the [facility] and the Western blot tests have come back positive for Lyme disease. The patient is taking doxycycline 100 mg twice a day. I let him know that it is possible that his depression, and to a lesser extent, his anxiety may be attributable to Lyme disease. However, he has had his physical symptoms for at least 6 years, and his symptoms of anxiety have emerged largely in the past 11 weeks, circumstance which suggests that there is more going on clinically than simply complications of Lyme disease. 06/09/17. - Her plan is to obtain an infectious disease consultation in order to receive recommendations for treatment, as necessary, following his planned three-week course of doxycycline. Also like to rule out, if possible, central nervous system involvement. 06/10/17 - Dr. Smith spoke with Dr. Agosto of [facility] in order to obtain recommendations regarding the patient's Lyme Disease. Dr. Agosto recommended continuing doxycycline 100 mg twice a day for an additional 1 month, with outpatient follow -up as indicated by an absence of resolution of the patient's symptoms. Discharge / Aftercare Planning Therapist: Name: Liyah News Clipping Cutter: Name: None Visit Code E&M Code: 89254 Inventory Assets Strengths: Has housing, supportive family Needs: Anxiety. Depression. Lyme Disease with multiple physical complaints. Social isolation. Risk Factors Assessment Male: Yes : Yes /single/: Yes Higher / Fall in social status: Yes Health problems: Yes Mental Health Diagnoses: Yes Substance use disorders: No Previous attempt: No Previous psychiatric stay: No Hopelessness: Yes Smoker: No Protective Factors Assessment Gnosticism beliefs: No : No Responsible for young children: No Employed: No Stable relationships: No Supportive family: Yes Good rapport with provider: No Data Vital Signs Last 24 Hrs: Date Time Temp Pulse Resp B/P (MAP) Pulse Ox O2 Delivery O2 Flow Rate FiO2 06/10/17 06:35 36.5 77 16 125/77 96 129/94 Meds Administered Last 24 Hrs: Meds Administered (Past 24Hrs) Medications (Trade) Dose Ordered Sig/Jeny Route Start Time Stop Time Status Last Admin Dose Admin Sertraline HCl (Zoloft Tab) 25 mg QAM PO 06/09/17 09:00 06/09/17 13:55 DC 06/09/17 09:05 25 MG Lorazepam (Ativan Tab) 1 mg TID PO 06/09/17 22:00 07/09/17 21:59 06/10/17 07:58 1 MG Sertraline HCl (Zoloft Tab) 50 mg QAM PO 06/10/17 09:00 07/10/17 08:59 06/10/17 07:59 50 MG
[2017-06-10] MEDS: TRAZODONE HCL 50 MG TAB PO SCH (22:56)
[2017-06-11 06:54] VITALS: BP_SYST 131; BP_SYST 134; BP_DIAS 82; BP_DIAS 89; PULSE 75; PULSE 76; TEMP 36.6
[2017-06-11 06:55] VITALS: Ht 180.3 cm; Wt 67.9 kg
[2017-06-11] MEDS: DOXYCYCLINE HYCLATE 100 MG CAP PO SCH ×2 (08:50→22:50)
[2017-06-11] MEDS: SERTRALINE HCL 50 MG TAB PO SCH (08:50)
[2017-06-11] MEDS: LORAZEPAM 1 MG TAB PO SCH ×3 (08:51→22:50)
--- NOTE | 2017-06-11 14:41 | Psychiatric Progress Notes ---
Progress Note Date of Service Jun 11, 2017. Interval History Manpreet Yuan is a 32-year-old male who currently lives in [place], has no psychiatric history, and presented to the emergency room requesting psychiatric admission for stress, anxiety, and suicidal thoughts. He was admitted on a 201 voluntary commitment. Chief Complaint "The meds are beginning to knock me out, I'm tired". Subjective Patient was seen & assessed interval progress reviewed with Nursing. Pt was seen for interview along with Karey Infante PA-C. Pt requests that door be kept open due to anxiety with small office. He reports he has only felt this way while on the unit. Pt reports fatigue and feels like the "meds are beginning to knock me out". Pt offers several reasons as to this including medication side effects, recent sleep deprivation, recent stressors, and "body fighting off the Lyme". Pt explains recent stressors and states there is "6 years of pain finally coming to the surface". He continues to question what portions of his symptoms may be due to is "pretty severe" Lyme disease. Pt states he depression is "stable" and that he feels good "when people are around ", but reports he has a harder time with his mood when he is alone and now that the milieu is "less energetic". He states he plans out time to spend on his own to reflect on his mood and the improvements he has been making. Pt denies SI currently. He states groups have been helpful and he has noticed a slight improvement with medications, but feels there could be more. Pt is concerned about long-term Ativan use, but states "for now I feel it's something that I still need". Pt reports his sleep is better with Trazodone. Appetite has improved and pt is hopeful about 2lb weight gain since admission. He reportedly "eats until he feels sick", but has noticed improvement in his dietary intake. He continues to focus on the ongoing pain symptoms related to his Lyme disease stating, "when I have the emotional pain, it helps me to not focus on the physical". Review of Systems Psych: denies symptoms other than stated above Constitutional: denied Cardiovascular: denied GI: nausea with meals Neurologic: denied Remainder of 10 body systems also reviewed and denied other than noted above. Sleep Information Total Hours of Sleep: 6.00 Meal Information Percent of Breakfast Consumed: 100 Percent of Lunch Consumed: 100 Percent of Dinner Consumed: 90 Mental Status Exam During interview pt is: alert and oriented, cooperative Appearance: appropriately dressed, appropriately groomed, other (large bump and scar on his right forehead) Eye contact is: good Motor behavior is: steady gait & station, psychomotor agitation (fidgeting with hands) Speech: normal in rate, rhythm & volume, is pressured (anxious with ) Affect: depressed, anxious Mood is: depressed ("stable"), anxious Thought process: linear, logical, clear, coherent (thoughtful in word choice) Thought content: preoccupation (with pain from Lyme disease) Suicidal thought are: denied, Plan: denied Homicidal thoughts are: denied Hallucinations: denies auditory, denies visual Cognition: memory grossly intact, attention grossly intact, language grossly intact Intelligence estimated to be: consistent with level of education, above average Insight: fair Judgement: fair Impression Pt continues to report improvement in mood. Pt is tolerating current dose of 50mg of sertraline. He is agreeable to increasing the dose in order to target both anxiety and depression. Pt feels the Ativan has been helping currently to improve anxiety symptoms but would appreciate discontinuation once anxiety is better controlled on another medication. He continues to focus on both psychiatric symptoms as well as physical symptoms of his Lyme disease, but is eager to continue with treatment for both. Plan (1) Anxiety Most likely diagnosis is panic disorder, although at this point cannot rule out anxiety due to general medical condition (Lyme disease). Also rule out major depressive disorder. Get collateral information from family (regarding his adult life, previous level of functioning prior to the past 10 weeks, they're understanding of why he has not been able to work for the past 6 years, if there was any worsening of symptoms after his head injury 13 years ago, and clarification of recent stressors, specifically why he was asked to stop volunteering). Family meeting with parents. They will need to be involved in discharge safety planning as well. We briefly discussed medication options for panic, specifically an SSRI antidepressant. The patient would like to try nonpharmacologic methods of handling his anxiety first. Refer for outpatient therapy and psychiatric follow -up. Hydroxyzine as needed for sleep and anxiety. Encourage participation in unit groups and programming. Work on healthy coping skills. 06/07 -Patient continues to report high anxiety and poor sleep. He continues to refuse a trial of an SSRI, although he has been educated repeatedly about the risks, benefits and side effects. Provided him with an Up To Date patient handout about SSRIs and encouraged him to continue to educate himself and ask questions. If he agrees, will start escitalopram 10mg. -Reviewed behavioral techniques he can utilize to manage anxiety. Avoiding benzos if possible, as patient states he does not want medication that will be sedating, but he has worsened throughout the day today and has approached staff multiple times asking for something prn for anxiety, doesn't feel hydroxyzine worked, so will try lorazepam 0.5mg q 6 hrs prn. -Patient is requesting a different medication for sleep. We reviewed the risks , benefits, and side effects of trazodone, including priapism, and he agreed to a trial. I will order 50 mg daily at bedtime tonight, which can be repeated once if needed. 06/08/17 -The patient reports that he has responded favorably to Ativan, but remains anxious. He has had no further panic episodes, however, we spent a great deal of time discussing a trial of SSRI, and today the patient tells me that he is inclined to try sertraline, prefers wishes to discuss this decision with his parents. I was able to speak with the patient's father about this recommendation, and the patient's father was in agreement with the plan to use an SSRI, but wished to do some "online research" first. - The patient tells me that he slept well with trazodone, and finds this to be a helpful medication. 06/09/17. -- The patient reports that he has had no further panic attacks. He also reports that he received substantial relief, but not complete relief, from lorazepam 0.5 mg every 6 hours. He says that he is asking for it routinely 3 times a day, but does not require it during the night. The plan is to address the patient's depression and anxiety in a 2 pronged approach: Address the possible infectious disease component secondary to Lyme disease, and treat both the depression and anxiety with an SSRI (sertraline), together with lorazepam while we are titrating the dose of sertraline. 06/10/17 -- The patient reports significantly reduced anxiety, and attributes this improvement to a combination of sertraline and lorazepam. He has had no further panic episodes, and finds that his levels of anxiety or now manageable. He understands that the goal is to eventually taper and discontinue lorazepam wants he is at a standard dose of sertraline. We are proceeding carefully with sertraline because of the patient's various physical complaints, and we want to avoid side effects that may discourage the patient from adherence. 06/11/17 -- (2) Suicidal ideation Every 15 minute checks for safety. Work on healthy coping skills and discharge safety plan. 06/08/17 - Today, the patient says that he is not having active suicidal thoughts, but continues to say that he considers suicide to be an option in the event that his feelings of anxiety, depression, and his various physical complaints don't improve over time. I was able to help him understand that this is "a bad time that will pass," and that "things will get better." The patient said that this was reassuring and that he hopes one day to be able to talk to other people who are going through similar experiences in order to help them. He agrees to notify staff should he develop any active suicidal thoughts. He does not have any specific plan for suicide at this point. 06/09/17. - The patient endorses what he refers to his overwhelming feelings of sadness, combined with high levels of anxiety, and multiple ongoing arthralgias and myalgias which are believed to be secondary to Lyme disease in his case. Today , he tells me that without substantial relief from his symptoms of depression, anxiety and physical complaints he will act on his thoughts of committing suicide although he contracts for safety in the hospital and says "I wouldn't do anything while I'm under treatment here." The patient clearly continues to require inpatient psychiatric hospitalization 06/10/17 - The patient tells me that he is not currently having suicidal thoughts, but feels that were he to return to the community at this point the suicidal thoughts with intent would potentially recur, in the absence of substantial improvement in his overwhelming feelings of depression, combined with ongoing myalgias and arthralgias. (3) Lyme disease Continue home dose of doxycycline, and follow-up with outpatient provider as directed by emergency room staff. He does not have a PCP, and states his parents were working on getting him medical assistance. 06/08/17 - Both the [facility]ATIE and the Western blot tests have come back positive for Lyme disease. The patient is taking doxycycline 100 mg twice a day. I let him know that it is possible that his depression, and to a lesser extent, his anxiety may be attributable to Lyme disease. However, he has had his physical symptoms for at least 6 years, and his symptoms of anxiety have emerged largely in the past 11 weeks, circumstance which suggests that there is more going on clinically than simply complications of Lyme disease. 06/09/17. - Her plan is to obtain an infectious disease consultation in order to receive recommendations for treatment, as necessary, following his planned three-week course of doxycycline. Also like to rule out, if possible, central nervous system involvement. 06/10/17 - Dr. Smith spoke with Dr. Agosto of [place] in order to obtain recommendations regarding the patient's Lyme Disease. Dr. Agosto recommended continuing doxycycline 100 mg twice a day for an additional 1 month, with outpatient follow -up as indicated by an absence of resolution of the patient's symptoms. 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 Depression. Lyme Disease with multiple physical complaints. Social isolation. Risk Factors Assessment Male: Yes : Yes /single/: Yes Higher / Fall in social status: Yes Health problems: Yes Mental Health Diagnoses: Yes Substance use disorders: No Previous attempt: No Previous psychiatric stay: No Hopelessness: Yes Smoker: No Protective Factors Assessment Druze beliefs: No : No Responsible for young children: No Employed: No Stable relationships: No Supportive family: Yes Good rapport with provider: No Data Vital Signs Last 24 Hrs: Date Time Temp Pulse Resp B/P (MAP) Pulse Ox O2 Delivery O2 Flow Rate FiO2 06/11/17 06:54 36.6 75 16 131/82 76 134/89 Meds Administered Last 24 Hrs: Meds Administered (Past 24Hrs) Medications (Trade) Dose Ordered Sig/Jeny Route Start Time Stop Time Status Last Admin Dose Admin Lorazepam (Ativan Tab) 1 mg TID PO 06/09/17 22:00 07/09/17 21:59 06/11/17 14:01 1 MG Sertraline HCl (Zoloft Tab) 50 mg QAM PO 06/10/17 09:00 06/11/17 13:17 DC 06/11/17 08:50 50 MG
--- NOTE | 2017-06-11 14:50 | Psychiatric Progress Notes ---
Progress Note Date of Service Jun 11, 2017. Interval History Manpreet Yuan is a 32-year-old male who currently lives in [place], has no psychiatric history, and presented to the emergency room requesting psychiatric admission for stress, anxiety, and suicidal thoughts. He was admitted on a 201 voluntary commitment. Chief Complaint "a little tired". Subjective Patient was seen & assessed interval progress reviewed with nursing. Pt endorsed some mild improvements with his anxiety, depression and racing thoughts. He is sleeping better. He endorsed some fatigue that he attributes to dealing with his emotional and physical concerns. He finds the processes draining. also he wonders if having some tiredness form his medication but wants to continue them since finds this tolerable and hoping to have them more effective over time. He is aiming to come off ativan in near future though. He is comfortable with further titration of zoloft to wards a more full dosage. He denied SI or HI. He denied manic symptoms. He is not having bothersome dreams the past few nights. he endorsed impaired appettite but making himself eat his meals fully with aim to regain his wt. He is having an upset stomach. seeking door open to office room since gets anxious in small rooms while here Review of Systems Constitutional: + weight loss (but feels is regaining his wt some since here), No fever, No chills, No sweats, No weakness, No fatigue, No problem reported Respiratory: No cough, No sputum, No wheezing, No shortness of breath, No dyspnea on exertion, No dyspnea at rest, No hemoptysis, No problem reported Cardiovascular: No chest pain, No orthopnea, No PND, No edema, No claudication , No palpitations, No problem reported Abdomen: + nausea Psychiatric: + depression symptoms, + anxiety, + insomnia (but treated with trazodone ) Sleep Information Total Hours of Sleep: 6.00 Meal Information Percent of Breakfast Consumed: 100 Percent of Lunch Consumed: 100 Percent of Dinner Consumed: 90 Mental Status Exam During interview pt is: alert and oriented, cooperative Appearance: appropriately dressed, appropriately groomed, other (large bump and scar on his right forehead) Eye contact is: good Motor behavior is: steady gait & station, psychomotor agitation (fidgetly ) Speech: other (soft but mild anxious like pressure to speech with edecreased latency of speech onset as well ) Affect: anxious Mood is: anxious (He notes that his anxiety is now well controlled and he has had no panic episodes.) Thought process: linear, logical (some obessiveness ongoing ), clear, coherent Thought content: preoccupation (with his somatic symptoms) Suicidal thought are: present (the patient has what might be referred to as future conditional suicidal thoughts. He says that he might consider suicide in the future if his physical symptoms and related limitations don't improve. He denies current suicidal thoughts.), Plan: denied Homicidal thoughts are: denied Hallucinations: denies auditory, denies visual Cognition: memory grossly intact, attention grossly intact, language grossly intact Intelligence estimated to be: consistent with level of education, above average Insight: fair Judgement: fair Impression Today, the patient reports some small improvement in his mood. He has been able to tolerate sertraline 50 mg daily, and we will "hold" at this dose for the next few days, and then consider increasing the dose as tolerated 200 mg daily, as indicated. The patient also reports that he feels that his anxiety is under fairly good control at his current dose of Ativan, and he says that the increased dose has helped considerably. Contrary to the patient's assertion at the time of admission, the patient is now saying that he realizes that his depression and anxiety are a greater problem than his physical symptoms , and he is eager to continue treatment for both depression/anxiety and Lyme disease.. Plan (1) Anxiety Most likely diagnosis is panic disorder, although at this point cannot rule out anxiety due to general medical condition (Lyme disease). Also rule out major depressive disorder. Get collateral information from family (regarding his adult life, previous level of functioning prior to the past 10 weeks, they're understanding of why he has not been able to work for the past 6 years, if there was any worsening of symptoms after his head injury 13 years ago, and clarification of recent stressors, specifically why he was asked to stop volunteering). Family meeting with parents. They will need to be involved in discharge safety planning as well. We briefly discussed medication options for panic, specifically an SSRI antidepressant. The patient would like to try nonpharmacologic methods of handling his anxiety first. Refer for outpatient therapy and psychiatric follow -up. Hydroxyzine as needed for sleep and anxiety. Encourage participation in unit groups and programming. Work on healthy coping skills. 06/07 -Patient continues to report high anxiety and poor sleep. He continues to refuse a trial of an SSRI, although he has been educated repeatedly about the risks, benefits and side effects. Provided him with an Up To Date patient handout about SSRIs and encouraged him to continue to educate himself and ask questions. If he agrees, will start escitalopram 10mg. -Reviewed behavioral techniques he can utilize to manage anxiety. Avoiding benzos if possible, as patient states he does not want medication that will be sedating, but he has worsened throughout the day today and has approached staff multiple times asking for something prn for anxiety, doesn't feel hydroxyzine worked, so will try lorazepam 0.5mg q 6 hrs prn. -Patient is requesting a different medication for sleep. We reviewed the risks , benefits, and side effects of trazodone, including priapism, and he agreed to a trial. I will order 50 mg daily at bedtime tonight, which can be repeated once if needed. 06/08/17 -The patient reports that he has responded favorably to Ativan, but remains anxious. He has had no further panic episodes, however, we spent a great deal of time discussing a trial of SSRI, and today the patient tells me that he is inclined to try sertraline, prefers wishes to discuss this decision with his parents. I was able to speak with the patient's father about this recommendation, and the patient's father was in agreement with the plan to use an SSRI, but wished to do some "online research" first. - The patient tells me that he slept well with trazodone, and finds this to be a helpful medication. 06/09/17. -- The patient reports that he has had no further panic attacks. He also reports that he received substantial relief, but not complete relief, from lorazepam 0.5 mg every 6 hours. He says that he is asking for it routinely 3 times a day, but does not require it during the night. The plan is to address the patient's depression and anxiety in a 2 pronged approach: Address the possible infectious disease component secondary to Lyme disease, and treat both the depression and anxiety with an SSRI (sertraline), together with lorazepam while we are titrating the dose of sertraline. 06/10/17 -- The patient reports significantly reduced anxiety, and attributes this improvement to a combination of sertraline and lorazepam. He has had no further panic episodes, and finds that his levels of anxiety or now manageable. He understands that the goal is to eventually taper and discontinue lorazepam wants he is at a standard dose of sertraline. We are proceeding carefully with sertraline because of the patient's various physical complaints, and we want to avoid side effects that may discourage the patient from adherence. 06/11/17 ---raised zoloft to 75mg for 06/12 dose, maintained ativan 1mg tid for now with plan to wean down dose as further improvement occurs, maintained trazodone at 50mg for insomnia at bedtime (2) Suicidal ideation Every 15 minute checks for safety. Work on healthy coping skills and discharge safety plan. 06/08/17 - Today, the patient says that he is not having active suicidal thoughts, but continues to say that he considers suicide to be an option in the event that his feelings of anxiety, depression, and his various physical complaints don't improve over time. I was able to help him understand that this is "a bad time that will pass," and that "things will get better." The patient said that this was reassuring and that he hopes one day to be able to talk to other people who are going through similar experiences in order to help them. He agrees to notify staff should he develop any active suicidal thoughts. He does not have any specific plan for suicide at this point. 06/09/17. - The patient endorses what he refers to his overwhelming feelings of sadness, combined with high levels of anxiety, and multiple ongoing arthralgias and myalgias which are believed to be secondary to Lyme disease in his case. Today , he tells me that without substantial relief from his symptoms of depression, anxiety and physical complaints he will act on his thoughts of committing suicide although he contracts for safety in the hospital and says "I wouldn't do anything while I'm under treatment here." The patient clearly continues to require inpatient psychiatric hospitalization 06/10/17 - The patient tells me that he is not currently having suicidal thoughts, but feels that were he to return to the community at this point the suicidal thoughts with intent would potentially recur, in the absence of substantial improvement in his overwhelming feelings of depression, combined with ongoing myalgias and arthralgias. (3) Lyme disease Continue home dose of doxycycline, and follow-up with outpatient provider as directed by emergency room staff. He does not have a PCP, and states his parents were working on getting him medical assistance. 06/08/17 - Both the [facility] and the Western blot tests have come back positive for Lyme disease. The patient is taking doxycycline 100 mg twice a day. I let him know that it is possible that his depression, and to a lesser extent, his anxiety may be attributable to Lyme disease. However, he has had his physical symptoms for at least 6 years, and his symptoms of anxiety have emerged largely in the past 11 weeks, circumstance which suggests that there is more going on clinically than simply complications of Lyme disease. 06/09/17. - Her plan is to obtain an infectious disease consultation in order to receive recommendations for treatment, as necessary, following his planned three-week course of doxycycline. Also like to rule out, if possible, central nervous system involvement. 06/10/17 - Dr. Smith spoke with Dr. Agosto of [place] in order to obtain recommendations regarding the patient's Lyme Disease. Dr. Agosto recommended continuing doxycycline 100 mg twice a day for an additional 1 month, with outpatient follow -up as indicated by an absence of resolution of the patient's symptoms. Discharge / Aftercare Planning Primary Care Physician: Name: Dr Larose Date of Appointment: Jun 21, 2017 Time of Appointment: 1:45pm Psychiatrist: Name: [facility] [address] [facility] Date of Appointment: Jun 27, 2017 Time of Appointment: 100pm Appointment Notes: intake with Tanya Jones Therapist: Name: [facility] Appointment Notes: will refer after intake Help Desk Technician: Name: None Inventory Assets Strengths: Has housing, supportive family Needs: Anxiety. Depression. Lyme Disease with multiple physical complaints. Social isolation. Risk Factors Assessment Male: Yes : Yes /single/: Yes Higher / Fall in social status: Yes Health problems: Yes Mental Health Diagnoses: Yes Substance use disorders: No Previous attempt: No Previous psychiatric stay: No Hopelessness: Yes Smoker: No Protective Factors Assessment Advent beliefs: No : No Responsible for young children: No Employed: No Stable relationships: No Supportive family: Yes Good rapport with provider: No Data Vital Signs Last 24 Hrs: Date Time Temp Pulse Resp B/P (MAP) Pulse Ox O2 Delivery O2 Flow Rate FiO2 06/11/17 06:54 36.6 75 16 131/82 76 134/89 Meds Administered Last 24 Hrs: Meds Administered (Past 24Hrs) Medications (Trade) Dose Ordered Sig/Jeny Route Start Time Stop Time Status Last Admin Dose Admin Lorazepam (Ativan Tab) 1 mg TID PO 06/09/17 22:00 07/09/17 21:59 06/11/17 14:01 1 MG Sertraline HCl (Zoloft Tab) 50 mg QAM PO 06/10/17 09:00 06/11/17 13:17 DC 06/11/17 08:50 50 MG
[2017-06-11] MEDS: TRAZODONE HCL 50 MG TAB PO SCH (22:50)
[2017-06-12 06:55] VITALS: BP_SYST 122; BP_SYST 127; BP_DIAS 74; PULSE 74; PULSE 99; TEMP 36.6
[2017-06-12] MEDS ORDERED: SERTRALINE HCL 50 MG TAB PO SCH (09:00)
[2017-06-12] MEDS: DOXYCYCLINE HYCLATE 100 MG CAP PO SCH ×2 (09:03→22:50)
[2017-06-12] MEDS: LORAZEPAM 1 MG TAB PO SCH ×2 (09:03→22:50)
[2017-06-12] MEDS: LORAZEPAM 0.5 MG TAB PO SCH (14:00)
--- NOTE | 2017-06-12 14:09 | Psychiatric Progress Notes ---
Progress Note Date of Service Jun 12, 2017. Interval History Manpreet Yuan is a 32-year-old male who currently lives in [place], has no psychiatric history, and presented to the emergency room requesting psychiatric admission for stress, anxiety, and suicidal thoughts. He was admitted on a 201 voluntary commitment. Chief Complaint "feel a bit hazy". Subjective Patient was seen & assessed interval progress reviewed with nursing. pt reports anxiety spikes as awakens but then settles down and is a 2 out of 10 in terms of anxiety (higher worse) during time of assessment which was about half hour prior to being due for 2nd ativan dose. Pt feels comfortable with his medications and denied s/e to Zoloft being increased and of being on current meds besides some fatigue/cloudiness which could be s/e of ativan. Pt denied SI or HI. endorsed some improvement to his depression. pt appears to be benefiting to the socialization aspects of the hospital course. appetite similar, gets upset stomach as eats his meals similar in intensity to prior days. sleeping well, denied other s/e Review of Systems Abdomen: + nausea Psychiatric: + depression symptoms, + anxiety Sleep Information Total Hours of Sleep: 6.50 Meal Information Percent of Breakfast Consumed: 50 Percent of Lunch Consumed: 50 Percent of Dinner Consumed: 100 Mental Status Exam During interview pt is: alert and oriented, cooperative Appearance: appropriately dressed, appropriately groomed, other (large bump and scar on his right forehead) Eye contact is: good Motor behavior is: steady gait & station, no abnormal motor movements Speech: normal in rate, rhythm & volume, other Affect: anxious Mood is: anxious (He notes that his anxiety is now well controlled and he has had no panic episodes.) Thought process: linear, logical, clear, coherent Thought content: preoccupation (with his somatic symptoms) Suicidal thought are: denied, Plan: denied Homicidal thoughts are: denied Hallucinations: denies auditory, denies visual Cognition: memory grossly intact, attention grossly intact, language grossly intact Intelligence estimated to be: consistent with level of education, above average Insight: fair Judgement: fair Impression Today, the patient reports some small improvement in his mood. He has been able to tolerate sertraline 50 mg daily, and we will "hold" at this dose for the next few days, and then consider increasing the dose as tolerated 200 mg daily, as indicated. The patient also reports that he feels that his anxiety is under fairly good control at his current dose of Ativan, and he says that the increased dose has helped considerably. Contrary to the patient's assertion at the time of admission, the patient is now saying that he realizes that his depression and anxiety are a greater problem than his physical symptoms , and he is eager to continue treatment for both depression/anxiety and Lyme disease.. Plan (1) Anxiety Most likely diagnosis is panic disorder, although at this point cannot rule out anxiety due to general medical condition (Lyme disease). Also rule out major depressive disorder. Get collateral information from family (regarding his adult life, previous level of functioning prior to the past 10 weeks, they're understanding of why he has not been able to work for the past 6 years, if there was any worsening of symptoms after his head injury 13 years ago, and clarification of recent stressors, specifically why he was asked to stop volunteering). Family meeting with parents. They will need to be involved in discharge safety planning as well. We briefly discussed medication options for panic, specifically an SSRI antidepressant. The patient would like to try nonpharmacologic methods of handling his anxiety first. Refer for outpatient therapy and psychiatric follow -up. Hydroxyzine as needed for sleep and anxiety. Encourage participation in unit groups and programming. Work on healthy coping skills. 06/07 -Patient continues to report high anxiety and poor sleep. He continues to refuse a trial of an SSRI, although he has been educated repeatedly about the risks, benefits and side effects. Provided him with an Up To Date patient handout about SSRIs and encouraged him to continue to educate himself and ask questions. If he agrees, will start escitalopram 10mg. -Reviewed behavioral techniques he can utilize to manage anxiety. Avoiding benzos if possible, as patient states he does not want medication that will be sedating, but he has worsened throughout the day today and has approached staff multiple times asking for something prn for anxiety, doesn't feel hydroxyzine worked, so will try lorazepam 0.5mg q 6 hrs prn. -Patient is requesting a different medication for sleep. We reviewed the risks , benefits, and side effects of trazodone, including priapism, and he agreed to a trial. I will order 50 mg daily at bedtime tonight, which can be repeated once if needed. 06/08/17 -The patient reports that he has responded favorably to Ativan, but remains anxious. He has had no further panic episodes, however, we spent a great deal of time discussing a trial of SSRI, and today the patient tells me that he is inclined to try sertraline, prefers wishes to discuss this decision with his parents. I was able to speak with the patient's father about this recommendation, and the patient's father was in agreement with the plan to use an SSRI, but wished to do some "online research" first. - The patient tells me that he slept well with trazodone, and finds this to be a helpful medication. 06/09/17. -- The patient reports that he has had no further panic attacks. He also reports that he received substantial relief, but not complete relief, from lorazepam 0.5 mg every 6 hours. He says that he is asking for it routinely 3 times a day, but does not require it during the night. The plan is to address the patient's depression and anxiety in a 2 pronged approach: Address the possible infectious disease component secondary to Lyme disease, and treat both the depression and anxiety with an SSRI (sertraline), together with lorazepam while we are titrating the dose of sertraline. 06/10/17 -- The patient reports significantly reduced anxiety, and attributes this improvement to a combination of sertraline and lorazepam. He has had no further panic episodes, and finds that his levels of anxiety or now manageable. He understands that the goal is to eventually taper and discontinue lorazepam wants he is at a standard dose of sertraline. We are proceeding carefully with sertraline because of the patient's various physical complaints, and we want to avoid side effects that may discourage the patient from adherence. 06/11/17 ---raised zoloft to 75mg for 06/12 dose, maintained ativan 1mg tid for now with plan to wean down dose as further improvement occurs, maintained trazodone at 50mg for insomnia at bedtime 06/12/17 raised zoloft to 100mg for 06/13 dose. lower ativan to 1mg 9am and 0.5mg 2pm and 1mg 9pm for today, with room to lower ativan further tomorrow if anxiety not worsened with this med adjustment. pt could envision holding 2pm dose on 06/13 if tolerating lowering of 2pm dose today well. (2) Suicidal ideation Every 15 minute checks for safety. Work on healthy coping skills and discharge safety plan. 06/08/17 - Today, the patient says that he is not having active suicidal thoughts, but continues to say that he considers suicide to be an option in the event that his feelings of anxiety, depression, and his various physical complaints don't improve over time. I was able to help him understand that this is "a bad time that will pass," and that "things will get better." The patient said that this was reassuring and that he hopes one day to be able to talk to other people who are going through similar experiences in order to help them. He agrees to notify staff should he develop any active suicidal thoughts. He does not have any specific plan for suicide at this point. 06/09/17. - The patient endorses what he refers to his overwhelming feelings of sadness, combined with high levels of anxiety, and multiple ongoing arthralgias and myalgias which are believed to be secondary to Lyme disease in his case. Today , he tells me that without substantial relief from his symptoms of depression, anxiety and physical complaints he will act on his thoughts of committing suicide although he contracts for safety in the hospital and says "I wouldn't do anything while I'm under treatment here." The patient clearly continues to require inpatient psychiatric hospitalization 06/10/17 - The patient tells me that he is not currently having suicidal thoughts, but feels that were he to return to the community at this point the suicidal thoughts with intent would potentially recur, in the absence of substantial improvement in his overwhelming feelings of depression, combined with ongoing myalgias and arthralgias. (3) Lyme disease Continue home dose of doxycycline, and follow-up with outpatient provider as directed by emergency room staff. He does not have a PCP, and states his parents were working on getting him medical assistance. 06/08/17 - Both the [facility]ATIE and the Western blot tests have come back positive for Lyme disease. The patient is taking doxycycline 100 mg twice a day. I let him know that it is possible that his depression, and to a lesser extent, his anxiety may be attributable to Lyme disease. However, he has had his physical symptoms for at least 6 years, and his symptoms of anxiety have emerged largely in the past 11 weeks, circumstance which suggests that there is more going on clinically than simply complications of Lyme disease. 06/09/17. - Her plan is to obtain an infectious disease consultation in order to receive recommendations for treatment, as necessary, following his planned three-week course of doxycycline. Also like to rule out, if possible, central nervous system involvement. 06/10/17 - Dr. Smith spoke with Dr. Agosto of [place] in order to obtain recommendations regarding the patient's Lyme Disease. Dr. Agosto recommended continuing doxycycline 100 mg twice a day for an additional 1 month, with outpatient follow -up as indicated by an absence of resolution of the patient's symptoms. Discharge / Aftercare Planning Primary Care Physician: Name: Dr Larose Date of Appointment: Jun 21, 2017 Time of Appointment: 1:45pm Psychiatrist: Name: [facility] [address] [facility] Date of Appointment: Jun 27, 2017 Time of Appointment: 100pm Appointment Notes: intake with Tanya Jones Therapist: Name: [facility] Appointment Notes: will refer after intake [employer] Assembler: Name: None Visit Code E&M Code: 46735 Inventory Assets Strengths: Has housing, supportive family Needs: Anxiety. Depression. Lyme Disease with multiple physical complaints. Social isolation. Risk Factors Assessment Male: Yes : Yes /single/: Yes Higher / Fall in social status: Yes Health problems: Yes Mental Health Diagnoses: Yes Substance use disorders: No Previous attempt: No Previous psychiatric stay: No Hopelessness: Yes Smoker: No Protective Factors Assessment Catholic beliefs: No : No Responsible for young children: No Employed: No Stable relationships: No Supportive family: Yes Good rapport with provider: No Data Vital Signs Last 24 Hrs: Date Time Temp Pulse Resp B/P (MAP) Pulse Ox O2 Delivery O2 Flow Rate FiO2 06/12/17 06:55 36.6 74 16 122/74 99 127/74 Meds Administered Last 24 Hrs: Meds Administered (Past 24Hrs) Medications (Trade) Dose Ordered Sig/Jeny Route Start Time Stop Time Status Last Admin Dose Admin Sertraline HCl (Zoloft Tab) 75 mg QAM PO 06/12/17 09:00 06/12/17 13:36 DC 06/12/17 09:03 75 MG Lorazepam (Ativan Tab) 0.5 mg QD@1400 PO 06/12/17 14:00 07/12/17 13:59 06/12/17 14:00 0.5 MG
[2017-06-12] MEDS: TRAZODONE HCL 50 MG TAB PO SCH (22:50)
[2017-06-13 06:51] VITALS: BP_SYST 107; BP_SYST 99; BP_DIAS 62; BP_DIAS 69; PULSE 64; PULSE 81; TEMP 36.7
[2017-06-13] MEDS: SERTRALINE HCL 100 MG TAB PO SCH (08:18)
[2017-06-13] MEDS: LORAZEPAM 1 MG TAB PO SCH ×2 (08:18→21:08)
[2017-06-13] MEDS: DOXYCYCLINE HYCLATE 100 MG CAP PO SCH ×2 (08:18→21:54)
--- NOTE | 2017-06-13 10:47 | Psychiatric Progress Notes ---
Progress Note Date of Service Jun 13, 2017. Interval History Manpreet Yuan is a 32-year-old male who currently lives in [place], has no psychiatric history, and presented to the emergency room requesting psychiatric admission for stress, anxiety, and suicidal thoughts. He was admitted on a 201 voluntary commitment. Chief Complaint "Well we've been doing a lot of things with the meds". Subjective Patient was seen & assessed interval progress reviewed with Treatment Team. Staff report he has been bright and jovial, seems to enjoy interacting with peers, and is attending unit programming. He is stating that he doesn't feel ready to leave the hospital and would like to stay for a long time. Today the patient reports he has improved, thinks meds are helping, but "sometimes I feel lifeless inside." He says mood is "really good" when he is around his peers, playing games, but when he is alone he feels "like I've lost the will to live." He denies suicidal thoughts here, but says he doesn't feel ready to leave, as he is easily overwhelmed. He says he has not worked on a plan to increase his socialization at home, because he feels too poorly. He is interested in psych rehab if it is an option. He admits to some mild sedation from Ativan, but likes it as he feels calmer, and thinks it is helping. He denies side effects to sertraline. He was encouraged to work on a plan for increasing his socialization at home, as he has found it helpful for mood and anxiety to be around others here. He wondered if he could volunteer at [employer] [employer], so that he could go there and "just hang out." Sleep Information Total Hours of Sleep: 7.00 Meal Information Percent of Breakfast Consumed: 100 Percent of Lunch Consumed: 50 Percent of Dinner Consumed: 50 Mental Status Exam During interview pt is: alert and oriented, cooperative Appearance: appropriately dressed, appropriately groomed, other (large bump and scar on his right forehead) Eye contact is: good Motor behavior is: steady gait & station, no abnormal motor movements Speech: normal in rate, rhythm & volume Affect: euthymic, anxious (improved from last week) Mood is: other ("better") Thought process: linear, logical, clear, coherent Thought content: preoccupation (with his somatic symptoms) Suicidal thought are: denied, Plan: denied Homicidal thoughts are: denied Hallucinations: denies auditory, denies visual Cognition: memory grossly intact, attention grossly intact, language grossly intact Intelligence estimated to be: consistent with level of education, above average Insight: fair Judgement: fair Impression Continues to slowly improve with respect to mood and anxiety. Now on 100 mg of sertraline and 2.5mg or lorazepam in divided dosing. Contrary to the patient's assertion at the time of admission, the patient is now saying that he realizes that his depression and anxiety are a greater problem than his physical symptoms , and he is eager to continue treatment for both depression/anxiety and Lyme disease. He will need follow up with psychiatry and a general practitioner regarding his Lyme treatment. He would benefit from a plan to increase his socialization at home. Plan (1) Anxiety Most likely diagnosis is panic disorder, although at this point cannot rule out anxiety due to general medical condition (Lyme disease). Also rule out major depressive disorder. Get collateral information from family (regarding his adult life, previous level of functioning prior to the past 10 weeks, they're understanding of why he has not been able to work for the past 6 years, if there was any worsening of symptoms after his head injury 13 years ago, and clarification of recent stressors, specifically why he was asked to stop volunteering). Family meeting with parents. They will need to be involved in discharge safety planning as well. We briefly discussed medication options for panic, specifically an SSRI antidepressant. The patient would like to try nonpharmacologic methods of handling his anxiety first. Refer for outpatient therapy and psychiatric follow -up. Hydroxyzine as needed for sleep and anxiety. Encourage participation in unit groups and programming. Work on healthy coping skills. 06/07 -Patient continues to report high anxiety and poor sleep. He continues to refuse a trial of an SSRI, although he has been educated repeatedly about the risks, benefits and side effects. Provided him with an Up To Date patient handout about SSRIs and encouraged him to continue to educate himself and ask questions. If he agrees, will start escitalopram 10mg. -Reviewed behavioral techniques he can utilize to manage anxiety. Avoiding benzos if possible, as patient states he does not want medication that will be sedating, but he has worsened throughout the day today and has approached staff multiple times asking for something prn for anxiety, doesn't feel hydroxyzine worked, so will try lorazepam 0.5mg q 6 hrs prn. -Patient is requesting a different medication for sleep. We reviewed the risks , benefits, and side effects of trazodone, including priapism, and he agreed to a trial. I will order 50 mg daily at bedtime tonight, which can be repeated once if needed. 06/08/17 -The patient reports that he has responded favorably to Ativan, but remains anxious. He has had no further panic episodes, however, we spent a great deal of time discussing a trial of SSRI, and today the patient tells me that he is inclined to try sertraline, prefers wishes to discuss this decision with his parents. I was able to speak with the patient's father about this recommendation, and the patient's father was in agreement with the plan to use an SSRI, but wished to do some "online research" first. - The patient tells me that he slept well with trazodone, and finds this to be a helpful medication. 06/09/17. -- The patient reports that he has had no further panic attacks. He also reports that he received substantial relief, but not complete relief, from lorazepam 0.5 mg every 6 hours. He says that he is asking for it routinely 3 times a day, but does not require it during the night. The plan is to address the patient's depression and anxiety in a 2 pronged approach: Address the possible infectious disease component secondary to Lyme disease, and treat both the depression and anxiety with an SSRI (sertraline), together with lorazepam while we are titrating the dose of sertraline. 06/10/17 -- The patient reports significantly reduced anxiety, and attributes this improvement to a combination of sertraline and lorazepam. He has had no further panic episodes, and finds that his levels of anxiety or now manageable. He understands that the goal is to eventually taper and discontinue lorazepam wants he is at a standard dose of sertraline. We are proceeding carefully with sertraline because of the patient's various physical complaints, and we want to avoid side effects that may discourage the patient from adherence. 06/11/17 -- raised zoloft to 75mg for 06/12 dose, maintained ativan 1mg tid for now with plan to wean down dose as further improvement occurs, maintained trazodone at 50mg for insomnia at bedtime 06/12/17 -- raised zoloft to 100mg for 06/13 dose. lower ativan to 1mg 9am and 0.5mg 2pm and 1mg 9pm for today, with room to lower ativan further tomorrow if anxiety not worsened with this med adjustment. pt could envision holding 2pm dose on 06/13 if tolerating lowering of 2pm dose today well. 06/13 -- Continue current medications, and refer for outpatient follow-up with a psychiatrist and therapist (referred to [facility]). Also explore options for psych rehabilitation or clubhouse, as he would benefit from increased socialization and feels the programming here has been helpful. (2) Suicidal ideation Every 15 minute checks for safety. Work on healthy coping skills and discharge safety plan. 06/08/17 - Today, the patient says that he is not having active suicidal thoughts, but continues to say that he considers suicide to be an option in the event that his feelings of anxiety, depression, and his various physical complaints don't improve over time. I was able to help him understand that this is "a bad time that will pass," and that "things will get better." The patient said that this was reassuring and that he hopes one day to be able to talk to other people who are going through similar experiences in order to help them. He agrees to notify staff should he develop any active suicidal thoughts. He does not have any specific plan for suicide at this point. 06/09/17 - The patient endorses what he refers to his overwhelming feelings of sadness, combined with high levels of anxiety, and multiple ongoing arthralgias and myalgias which are believed to be secondary to Lyme disease in his case. Today , he tells me that without substantial relief from his symptoms of depression, anxiety and physical complaints he will act on his thoughts of committing suicide although he contracts for safety in the hospital and says "I wouldn't do anything while I'm under treatment here." The patient clearly continues to require inpatient psychiatric hospitalization 06/10/17 - The patient tells me that he is not currently having suicidal thoughts, but feels that were he to return to the community at this point the suicidal thoughts with intent would potentially recur, in the absence of substantial improvement in his overwhelming feelings of depression, combined with ongoing myalgias and arthralgias. 06/13 - Patient encouraged to work on his discharge safety plan. (3) Lyme disease Continue home dose of doxycycline, and follow-up with outpatient provider as directed by emergency room staff. He does not have a PCP, and states his parents were working on getting him medical assistance. 06/08/17 - Both the KATIE and the Western blot tests have come back positive for Lyme disease. The patient is taking doxycycline 100 mg twice a day. I let him know that it is possible that his depression, and to a lesser extent, his anxiety may be attributable to Lyme disease. However, he has had his physical symptoms for at least 6 years, and his symptoms of anxiety have emerged largely in the past 11 weeks, circumstance which suggests that there is more going on clinically than simply complications of Lyme disease. 06/09/17 - Obtain an infectious disease consultation in order to receive recommendations for treatment, as necessary, following his planned three-week course of doxycycline. Also like to rule out, if possible, central nervous system involvement. 06/10/17 - Dr. Smith spoke with Dr. Agosto of [place] in order to obtain recommendations regarding the patient's Lyme Disease. Dr. Agosto recommended continuing doxycycline 100 mg twice a day for an additional 1 month, with outpatient follow -up as indicated by an absence of resolution of the patient's symptoms. 06/13 - Refer for outpatient follow-up in preparation for discharge. Discharge / Aftercare Planning Primary Care Physician: Name: Dr Larose Date of Appointment: Jun 21, 2017 Time of Appointment: 1:45pm Psychiatrist: Name: [facility] [address] [facility] Date of Appointment: Jun 27, 2017 Time of Appointment: 100pm Appointment Notes: intake with Tanya Jones Therapist: Name: [facility] Appointment Notes: will refer after intake Thoracic Medicine Physician: Name: None Visit Code E&M Code: 86277 Inventory Assets Strengths: Has housing, supportive family Needs: Anxiety. Depression. Lyme Disease with multiple physical complaints. Social isolation. Risk Factors Assessment Male: Yes : Yes /single/: Yes Higher / Fall in social status: Yes Health problems: Yes Mental Health Diagnoses: Yes Substance use disorders: No Previous attempt: No Previous psychiatric stay: No Hopelessness: Yes Smoker: No Protective Factors Assessment Buddhism beliefs: No : No Responsible for young children: No Employed: No Stable relationships: No Supportive family: Yes Good rapport with provider: No Data Vital Signs Last 24 Hrs: Date Time Temp Pulse Resp B/P (MAP) Pulse Ox O2 Delivery O2 Flow Rate FiO2 06/13/17 06:51 36.7 64 16 107/69 81 99/62 Meds Administered Last 24 Hrs: Meds Administered (Past 24Hrs) Medications (Trade) Dose Ordered Sig/Jeny Route Start Time Stop Time Status Last Admin Dose Admin Sertraline HCl (Zoloft Tab) 75 mg QAM PO 06/12/17 09:00 06/12/17 13:36 DC 06/12/17 09:03 75 MG Lorazepam (Ativan Tab) 1 mg Q12H PO 06/12/17 21:00 07/09/17 21:59 06/13/17 08:18 1 MG Sertraline HCl (Zoloft Tab) 100 mg QAM PO 06/13/17 09:00 07/10/17 08:59 06/13/17 08:18 100 MG Lorazepam (Ativan Tab) 0.5 mg QD@1400 PO 06/12/17 14:00 07/12/17 13:59 06/12/17 14:00 0.5 MG
[2017-06-13] MEDS: LORAZEPAM 0.5 MG TAB PO SCH (13:55)
[2017-06-13] MEDS: TRAZODONE HCL 50 MG TAB PO SCH (21:54)
[2017-06-14 06:52] VITALS: BP_SYST 112; BP_SYST 118; BP_DIAS 70; BP_DIAS 75; PULSE 80; PULSE 97; TEMP 36.6
[2017-06-14] MEDS: SERTRALINE HCL 100 MG TAB PO SCH (08:40)
[2017-06-14] MEDS: LORAZEPAM 1 MG TAB PO SCH ×2 (08:40→22:39)
[2017-06-14] MEDS: DOXYCYCLINE HYCLATE 100 MG CAP PO SCH ×2 (08:40→22:35)
--- NOTE | 2017-06-14 09:13 | Psychiatric Progress Notes ---
Progress Note Date of Service Jun 14, 2017. Interval History Manpreet Yuan is a 32-year-old male who currently lives in [place], has no psychiatric history, and presented to the emergency room requesting psychiatric admission for stress, anxiety, and suicidal thoughts. He was admitted on a 201 voluntary commitment. Chief Complaint "I feel pretty awful, depressed". Subjective Patient was seen & assessed interval progress reviewed with nursing. Staff report he has been upset about discussions around discharge, stating that he doesn't feel ready to leave, and his mood actually worsened yesterday due to this. He rates his mood a 1-10, and said he felt unable to contract for safety outside the hospital, and concerned he would commit suicide if he went home. Staff spent time with him and his parents discussing his discharge plans and recommendations for aftercare. He has been going to groups and socializing with peers, and affect is brighter when he is with other people. Today, the patient reports mood is worse today, he feels sad, overwhelmed, and afraid that he will kill himself if he goes home. He says his anxiety is "really bad," but cannot describe his symptoms any further. He continues to take Ativan 3 times a day as scheduled, and says it helps with anxiety. Appetite remains poor, and he refused dinner last night. He says he is better than on admission, but does not feel ready to leave. He continues to feel unable to cope and "I've lost the desire to live." He is going to groups and finds it helps to be around others, but says he has "no idea" how to incorporate this into his discharge plan. He is willing for a referral to Clubhouse or Psych Rehab, and wants to volunteer "someplace like this, where I can just come and hang out with the patients." Sleep Information Total Hours of Sleep: 6.50 Meal Information Percent of Breakfast Consumed: 100 Percent of Lunch Consumed: 75 Percent of Dinner Consumed: 0 Mental Status Exam During interview pt is: alert and oriented, cooperative Appearance: appropriately dressed, appropriately groomed, other (large bump and scar on his right forehead) Eye contact is: poor (looks at floor for most of the interaction) Motor behavior is: steady gait & station, no abnormal motor movements Speech: normal in rate, rhythm & volume (monotone, minimal speech) Affect: mood congruent, depressed, irritable, anxious (improved from last week) Mood is: other ("really bad") Thought process: goal directed Thought content: preoccupation (with not feeling ready for discharge) Suicidal thought are: present (states he does not feel safe to go home, and thinks he would be suicidal), Plan: denied Homicidal thoughts are: denied Hallucinations: denies auditory, denies visual Cognition: memory grossly intact, attention grossly intact, language grossly intact Intelligence estimated to be: consistent with level of education, above average Insight: fair Judgement: fair Impression Continues to slowly improve with respect to mood and anxiety, but very resistant to engaging in discharge planning, feeling that he needs a long hospitalization and does not feel safe to go home. Now on 100 mg of sertraline and 2.5mg or lorazepam in divided dosing. Contrary to the patient's assertion at the time of admission, the patient is now saying that he realizes that his depression and anxiety are a greater problem than his physical symptoms, and he is eager to continue treatment for both depression/anxiety and Lyme disease. He will need follow up with psychiatry and a general practitioner regarding his Lyme treatment. He would benefit from a plan to increase his socialization at home, and is agreeing to a referral to [facility] for [facility] and psych rehabilitation. Plan (1) Panic disorder Most likely diagnosis is panic disorder, although at this point cannot rule out anxiety due to general medical condition (Lyme disease). Also rule out major depressive disorder. Get collateral information from family (regarding his adult life, previous level of functioning prior to the past 10 weeks, they're understanding of why he has not been able to work for the past 6 years, if there was any worsening of symptoms after his head injury 13 years ago, and clarification of recent stressors, specifically why he was asked to stop volunteering). Family meeting with parents. They will need to be involved in discharge safety planning as well. We briefly discussed medication options for panic, specifically an SSRI antidepressant. The patient would like to try nonpharmacologic methods of handling his anxiety first. Refer for outpatient therapy and psychiatric follow -up. Hydroxyzine as needed for sleep and anxiety. Encourage participation in unit groups and programming. Work on healthy coping skills. 06/07 -Patient continues to report high anxiety and poor sleep. He continues to refuse a trial of an SSRI, although he has been educated repeatedly about the risks, benefits and side effects. Provided him with an Up To Date patient handout about SSRIs and encouraged him to continue to educate himself and ask questions. If he agrees, will start escitalopram 10mg. -Reviewed behavioral techniques he can utilize to manage anxiety. Avoiding benzos if possible, as patient states he does not want medication that will be sedating, but he has worsened throughout the day today and has approached staff multiple times asking for something prn for anxiety, doesn't feel hydroxyzine worked, so will try lorazepam 0.5mg q 6 hrs prn. -Patient is requesting a different medication for sleep. We reviewed the risks , benefits, and side effects of trazodone, including priapism, and he agreed to a trial. I will order 50 mg daily at bedtime tonight, which can be repeated once if needed. 06/08/17 -The patient reports that he has responded favorably to Ativan, but remains anxious. He has had no further panic episodes, however, we spent a great deal of time discussing a trial of SSRI, and today the patient tells me that he is inclined to try sertraline, prefers wishes to discuss this decision with his parents. I was able to speak with the patient's father about this recommendation, and the patient's father was in agreement with the plan to use an SSRI, but wished to do some "online research" first. - The patient tells me that he slept well with trazodone, and finds this to be a helpful medication. 06/09/17 -- The patient reports that he has had no further panic attacks. He also reports that he received substantial relief, but not complete relief, from lorazepam 0.5 mg every 6 hours. He says that he is asking for it routinely 3 times a day, but does not require it during the night. The plan is to address the patient's depression and anxiety in a 2 pronged approach: Address the possible infectious disease component secondary to Lyme disease, and treat both the depression and anxiety with an SSRI (sertraline), together with lorazepam while we are titrating the dose of sertraline. 06/10/17 -- The patient reports significantly reduced anxiety, and attributes this improvement to a combination of sertraline and lorazepam. He has had no further panic episodes, and finds that his levels of anxiety or now manageable. He understands that the goal is to eventually taper and discontinue lorazepam wants he is at a standard dose of sertraline. We are proceeding carefully with sertraline because of the patient's various physical complaints, and we want to avoid side effects that may discourage the patient from adherence. 06/11/17 -- raised zoloft to 75mg for 06/12 dose, maintained ativan 1mg tid for now with plan to wean down dose as further improvement occurs, maintained trazodone at 50mg for insomnia at bedtime 06/12/17 -- raised zoloft to 100mg for 06/13 dose. lower ativan to 1mg 9am and 0.5mg 2pm and 1mg 9pm for today, with room to lower ativan further tomorrow if anxiety not worsened with this med adjustment. pt could envision holding 2pm dose on 06/13 if tolerating lowering of 2pm dose today well. 06/13 -- Continue current medications, and refer for outpatient follow-up with a psychiatrist and therapist (referred to [facility]). Also explore options for psych rehabilitation or clubhouse, as he would benefit from increased socialization and feels the programming here has been helpful. 06/14 -- Patient encouraged to engage more with discharge planning, and to work on ways to increase his socialization at home and ensure a robust safety plan. He has been resistant to this, stating he wants to stay in the hospital until he is completely recovered, and we discussed that hospitalization will be acute only, and that much of his recovery will occur at home in the outpatient setting. -- [facility] and [facility]. Has an intake at [facility] 06/27/2017. (2) Depression As patient's anxiety has improved, he has become more aware of his severe depressive symptoms, with ongoing suicidal ideation. Sertraline started and titrated upwards as above. (3) Suicidal ideation Every 15 minute checks for safety. Work on healthy coping skills and discharge safety plan. 06/08/17 - Today, the patient says that he is not having active suicidal thoughts, but continues to say that he considers suicide to be an option in the event that his feelings of anxiety, depression, and his various physical complaints don't improve over time. I was able to help him understand that this is "a bad time that will pass," and that "things will get better." The patient said that this was reassuring and that he hopes one day to be able to talk to other people who are going through similar experiences in order to help them. He agrees to notify staff should he develop any active suicidal thoughts. He does not have any specific plan for suicide at this point. 06/09/17 - The patient endorses what he refers to his overwhelming feelings of sadness, combined with high levels of anxiety, and multiple ongoing arthralgias and myalgias which are believed to be secondary to Lyme disease in his case. Today , he tells me that without substantial relief from his symptoms of depression, anxiety and physical complaints he will act on his thoughts of committing suicide although he contracts for safety in the hospital and says "I wouldn't do anything while I'm under treatment here." The patient clearly continues to require inpatient psychiatric hospitalization 06/10/17 - The patient tells me that he is not currently having suicidal thoughts, but feels that were he to return to the community at this point the suicidal thoughts with intent would potentially recur, in the absence of substantial improvement in his overwhelming feelings of depression, combined with ongoing myalgias and arthralgias. 06/13 - Patient encouraged to work on his discharge safety plan. (4) Lyme disease Continue home dose of doxycycline, and follow-up with outpatient provider as directed by emergency room staff. He does not have a PCP, and states his parents were working on getting him medical assistance. 06/08/17 - Both the [facility]ATIE and the Western blot tests have come back positive for Lyme disease. The patient is taking doxycycline 100 mg twice a day. I let him know that it is possible that his depression, and to a lesser extent, his anxiety may be attributable to Lyme disease. However, he has had his physical symptoms for at least 6 years, and his symptoms of anxiety have emerged largely in the past 11 weeks, circumstance which suggests that there is more going on clinically than simply complications of Lyme disease. 06/09/17 - Obtain an infectious disease consultation in order to receive recommendations for treatment, as necessary, following his planned three-week course of doxycycline. Also like to rule out, if possible, central nervous system involvement. 06/10/17 - Dr. Smith spoke with Dr. Agosto of [place] in order to obtain recommendations regarding the patient's Lyme Disease. Dr. Agosto recommended continuing doxycycline 100 mg twice a day for an additional 1 month, with outpatient follow -up as indicated by an absence of resolution of the patient's symptoms. 06/13 - Refer for outpatient follow-up in preparation for discharge. 06/14 - Referred to Dr. Tafoya . Discharge / Aftercare Planning Primary Care Physician: Name: Dr Larose Date of Appointment: Jun 21, 2017 Time of Appointment: 1:45pm Psychiatrist: Name: [facility] [address] [facility] Date of Appointment: Jun 27, 2017 Time of Appointment: 100pm Appointment Notes: intake with Tanya Jones Therapist: Name: [facility] Appointment Notes: will refer after intake Toll Collector: Name: None Visit Code E&M Code: 32058 Inventory Assets Strengths: Has housing, supportive family Needs: Anxiety. Depression. Lyme Disease with multiple physical complaints. Social isolation. Risk Factors Assessment Male: Yes : Yes /single/: Yes Higher / Fall in social status: Yes Health problems: Yes Mental Health Diagnoses: Yes Substance use disorders: No Previous attempt: No Previous psychiatric stay: No Hopelessness: Yes Smoker: No Protective Factors Assessment L[employer] Day beliefs: No : No Responsible for young children: No Employed: No Stable relationships: No Supportive family: Yes Good rapport with provider: No Data Vital Signs Last 24 Hrs: Date Time Temp Pulse Resp B/P (MAP) Pulse Ox O2 Delivery O2 Flow Rate FiO2 06/14/17 06:52 36.6 80 16 118/75 97 112/70 Meds Administered Last 24 Hrs: Meds Administered (Past 24Hrs) Medications (Trade) Dose Ordered Sig/Jeny Route Start Time Stop Time Status Last Admin Dose Admin Sertraline HCl (Zoloft Tab) 75 mg QAM PO 06/12/17 09:00 06/12/17 13:36 DC 06/12/17 09:03 75 MG Lorazepam (Ativan Tab) 1 mg Q12H PO 06/12/17 21:00 07/09/17 21:59 06/14/17 08:40 1 MG Sertraline HCl (Zoloft Tab) 100 mg QAM PO 06/13/17 09:00 07/10/17 08:59 06/14/17 08:40 100 MG Lorazepam (Ativan Tab) 0.5 mg QD@1400 PO 06/12/17 14:00 07/12/17 13:59 06/13/17 13:55 0.5 MG Problem Qualifiers (1) Depression: Depression Type: major depressive disorder Major depression recurrence: single episode Active/Remission status: currently active Major depression episode severity: severe Psychotic features: without psychotic features Qualified Codes: F32.2 - Major depressive disorder, single episode, severe without psychotic features
[2017-06-14] MEDS: LORAZEPAM 0.5 MG TAB PO SCH (14:57)
[2017-06-14] MEDS: TRAZODONE HCL 50 MG TAB PO SCH (22:36)
[2017-06-15 07:07] VITALS: BP_SYST 105; BP_SYST 122; BP_DIAS 67; BP_DIAS 73; PULSE 64; PULSE 76; TEMP 36.5
[2017-06-15] MEDS: SERTRALINE HCL 100 MG TAB PO SCH (08:27)
[2017-06-15] MEDS: LORAZEPAM 1 MG TAB PO SCH (08:27)
[2017-06-15] MEDS: DOXYCYCLINE HYCLATE 100 MG CAP PO SCH ×2 (08:27→22:58)
--- NOTE | 2017-06-15 12:46 | Psychiatric Progress Notes ---
Progress Note Date of Service Jun 15, 2017. Interval History Manpreet Yuan is a 32-year-old male who currently lives in [place], has no psychiatric history, and presented to the emergency room requesting psychiatric admission for stress, anxiety, and suicidal thoughts. He was admitted on a 201 voluntary commitment. Chief Complaint "Okay". Subjective Patient was seen & assessed interval progress reviewed with Treatment Team. Staff report he has been reporting low mood, rating it a 1/10, although this was not congruent with his affect, which was bright and cheerful. He complained that he is "being kicked out" of the hospital after he was informed of his estimated discharge date. He was referred to [facility] and had a lot of questions about the treatment there. He is attending groups and during one group, kept his eyes closed and responded only if the counselor directly questioned him. Today, he says mood is "ok," and he wants to talk to someone to get "more details" about his aftercare. He was encouraged to call [facility] directly if he has more specific questions. He continues to endorse anxiety, describes it as "up and down," as he gets more anxious whenever he thinks or talks about discharge. He is still taking Ativan 3 times a day and says he's "not really quite ready to decrease it, I can't do anything until I take my morning Ativan." Discussed decreasing bedtime dose to 0.5 and he agreed. Also discussed increasing his sertraline to target mood and anxiety. He reports improved sleep and thinks trazodone is helping. Appetite is better, but still not eating as much as he should, limited by anxiety. He denies SI here and says "as long as I have a plan when I get outta here, [facility], I think I'll be okay , but if everything gets shut down, I'm not okay." He is still thinking about volunteering, but "I don't feel like I'm quite ready, I'm still in the patient mode, need to recuperate more." He continues to say he wants to work with "patients, just hanging out." Sleep Information Total Hours of Sleep: 6.50 Meal Information Percent of Breakfast Consumed: 20 Percent of Lunch Consumed: 100 Percent of Dinner Consumed: 50 Mental Status Exam During interview pt is: alert and oriented, cooperative Appearance: appropriately dressed, appropriately groomed, other (large bump and scar on his right forehead) Eye contact is: poor (looks at floor for most of the interaction) Motor behavior is: steady gait & station, no abnormal motor movements Speech: normal in rate, rhythm & volume (monotone, minimal speech) Affect: mood congruent, depressed, irritable, anxious (improved from last week) Mood is: other ("really bad") Thought process: goal directed Thought content: preoccupation (with not feeling ready for discharge) Suicidal thought are: denied Homicidal thoughts are: denied Hallucinations: denies auditory, denies visual Cognition: memory grossly intact, attention grossly intact, language grossly intact Intelligence estimated to be: consistent with level of education, above average Insight: fair Judgement: fair Impression Continues to slowly improve with respect to mood and anxiety, but very resistant to engaging in discharge planning, feeling that he needs a long hospitalization and does not feel safe to go home. Increasing sertraline to 150mg and decreasing lorazepam. Contrary to the patient's assertion at the time of admission, the patient is now saying that he realizes that his depression and anxiety are a greater problem than his physical symptoms, and he is eager to continue treatment for both depression/anxiety and Lyme disease. He will need follow up with psychiatry and a general practitioner regarding his Lyme treatment. He would benefit from a plan to increase his socialization at home, and is agreeing to a [facility] and psych rehabilitation. Plan (1) Panic disorder Most likely diagnosis is panic disorder, although at this point cannot rule out anxiety due to general medical condition (Lyme disease). Also rule out major depressive disorder. Get collateral information from family (regarding his adult life, previous level of functioning prior to the past 10 weeks, they're understanding of why he has not been able to work for the past 6 years, if there was any worsening of symptoms after his head injury 13 years ago, and clarification of recent stressors, specifically why he was asked to stop volunteering). Family meeting with parents. They will need to be involved in discharge safety planning as well. We briefly discussed medication options for panic, specifically an SSRI antidepressant. The patient would like to try nonpharmacologic methods of handling his anxiety first. Refer for outpatient therapy and psychiatric follow -up. Hydroxyzine as needed for sleep and anxiety. Encourage participation in unit groups and programming. Work on healthy coping skills. 06/07 -Patient continues to report high anxiety and poor sleep. He continues to refuse a trial of an SSRI, although he has been educated repeatedly about the risks, benefits and side effects. Provided him with an Up To Date patient handout about SSRIs and encouraged him to continue to educate himself and ask questions. If he agrees, will start escitalopram 10mg. -Reviewed behavioral techniques he can utilize to manage anxiety. Avoiding benzos if possible, as patient states he does not want medication that will be sedating, but he has worsened throughout the day today and has approached staff multiple times asking for something prn for anxiety, doesn't feel hydroxyzine worked, so will try lorazepam 0.5mg q 6 hrs prn. -Patient is requesting a different medication for sleep. We reviewed the risks , benefits, and side effects of trazodone, including priapism, and he agreed to a trial. I will order 50 mg daily at bedtime tonight, which can be repeated once if needed. 06/08/17 -The patient reports that he has responded favorably to Ativan, but remains anxious. He has had no further panic episodes, however, we spent a great deal of time discussing a trial of SSRI, and today the patient tells me that he is inclined to try sertraline, prefers wishes to discuss this decision with his parents. I was able to speak with the patient's father about this recommendation, and the patient's father was in agreement with the plan to use an SSRI, but wished to do some "online research" first. - The patient tells me that he slept well with trazodone, and finds this to be a helpful medication. 06/09/17 -- The patient reports that he has had no further panic attacks. He also reports that he received substantial relief, but not complete relief, from lorazepam 0.5 mg every 6 hours. He says that he is asking for it routinely 3 times a day, but does not require it during the night. The plan is to address the patient's depression and anxiety in a 2 pronged approach: Address the possible infectious disease component secondary to Lyme disease, and treat both the depression and anxiety with an SSRI (sertraline), together with lorazepam while we are titrating the dose of sertraline. 06/10/17 -- The patient reports significantly reduced anxiety, and attributes this improvement to a combination of sertraline and lorazepam. He has had no further panic episodes, and finds that his levels of anxiety or now manageable. He understands that the goal is to eventually taper and discontinue lorazepam wants he is at a standard dose of sertraline. We are proceeding carefully with sertraline because of the patient's various physical complaints, and we want to avoid side effects that may discourage the patient from adherence. 06/11/17 -- raised zoloft to 75mg for 06/12 dose, maintained ativan 1mg tid for now with plan to wean down dose as further improvement occurs, maintained trazodone at 50mg for insomnia at bedtime 06/12/17 -- raised zoloft to 100mg for 06/13 dose. lower ativan to 1mg 9am and 0.5mg 2pm and 1mg 9pm for today, with room to lower ativan further tomorrow if anxiety not worsened with this med adjustment. pt could envision holding 2pm dose on 06/13 if tolerating lowering of 2pm dose today well. 06/13 -- Continue current medications, and refer for outpatient follow-up with a psychiatrist and therapist (referred to [facility]). Also explore options for psych rehabilitation or clubhouse, as he would benefit from increased socialization and feels the programming here has been helpful. 06/14 -- Patient encouraged to engage more with discharge planning, and to work on ways to increase his socialization at home and ensure a robust safety plan. He has been resistant to this, stating he wants to stay in the hospital until he is completely recovered, and we discussed that hospitalization will be acute only, and that much of his recovery will occur at home in the outpatient setting. -- Refer to the [facility] for psych rehabilitation and clubhouse. Has an intake at [facility] 06/27/2017. 06/15 -- Panic improved, although remains generally anxious. Decrease lorazepam to 1 mg every morning and 0.5 mg in the afternoon at bedtime, and increase sertraline to 150 mg daily. Patient was again educated about the risks of benzodiazepine use, and the recommendations to use this medication for short- term treatment and to taper off of it over the next few weeks. (2) Depression As patient's anxiety has improved, he has become more aware of his severe depressive symptoms, with ongoing suicidal ideation. Sertraline started and titrated upwards as above. (3) Suicidal ideation Every 15 minute checks for safety. Work on healthy coping skills and discharge safety plan. 06/08/17 - Today, the patient says that he is not having active suicidal thoughts, but continues to say that he considers suicide to be an option in the event that his feelings of anxiety, depression, and his various physical complaints don't improve over time. I was able to help him understand that this is "a bad time that will pass," and that "things will get better." The patient said that this was reassuring and that he hopes one day to be able to talk to other people who are going through similar experiences in order to help them. He agrees to notify staff should he develop any active suicidal thoughts. He does not have any specific plan for suicide at this point. 06/09/17 - The patient endorses what he refers to his overwhelming feelings of sadness, combined with high levels of anxiety, and multiple ongoing arthralgias and myalgias which are believed to be secondary to Lyme disease in his case. Today , he tells me that without substantial relief from his symptoms of depression, anxiety and physical complaints he will act on his thoughts of committing suicide although he contracts for safety in the hospital and says "I wouldn't do anything while I'm under treatment here." The patient clearly continues to require inpatient psychiatric hospitalization 06/10/17 - The patient tells me that he is not currently having suicidal thoughts, but feels that were he to return to the community at this point the suicidal thoughts with intent would potentially recur, in the absence of substantial improvement in his overwhelming feelings of depression, combined with ongoing myalgias and arthralgias. 06/13 - Patient encouraged to work on his discharge safety plan. (4) Lyme disease Continue home dose of doxycycline, and follow-up with outpatient provider as directed by emergency room staff. He does not have a PCP, and states his parents were working on getting him medical assistance. 06/08/17 - Both the [facility]AT[facility] and the Western blot tests have come back positive for Lyme disease. The patient is taking doxycycline 100 mg twice a day. I let him know that it is possible that his depression, and to a lesser extent, his anxiety may be attributable to Lyme disease. However, he has had his physical symptoms for at least 6 years, and his symptoms of anxiety have emerged largely in the past 11 weeks, circumstance which suggests that there is more going on clinically than simply complications of Lyme disease. 06/09/17 - Obtain an infectious disease consultation in order to receive recommendations for treatment, as necessary, following his planned three-week course of doxycycline. Also like to rule out, if possible, central nervous system involvement. 06/10/17 - Dr. Smith spoke with Dr. Agosto of [place] in order to obtain recommendations regarding the patient's Lyme Disease. Dr. Agosto recommended continuing doxycycline 100 mg twice a day for an additional 1 month, with outpatient follow -up as indicated by an absence of resolution of the patient's symptoms. 06/13 - Refer for outpatient follow-up in preparation for discharge. 06/14 - Referred to Dr. Tafoya . Discharge / Aftercare Planning Primary Care Physician: Name: Dr Larose Date of Appointment: Jun 21, 2017 Time of Appointment: 1:45pm Psychiatrist: Name: [facility] [address] [facility] Date of Appointment: Jun 27, 2017 Time of Appointment: 1:00pm Appointment Notes: intake with Tanya Jones Therapist: Name: [facility] Appointment Notes: will refer after intake Bobbin Coil Winder: Name: None Partial or Psych Rehab: Name: [facility] Appointment Notes: They will call you at home to schedule tour. Visit Code E&M Code: 48242 Inventory Assets Strengths: Has housing, supportive family Needs: Anxiety. Depression. Lyme Disease with multiple physical complaints. Social isolation. Risk Factors Assessment Male: Yes : Yes /single/: Yes Higher / Fall in social status: Yes Health problems: Yes Mental Health Diagnoses: Yes Substance use disorders: No Previous attempt: No Previous psychiatric stay: No Hopelessness: Yes Smoker: No Protective Factors Assessment Hinduism beliefs: No : No Responsible for young children: No Employed: No Stable relationships: No Supportive family: Yes Good rapport with provider: No Data Vital Signs Last 24 Hrs: Date Time Temp Pulse Resp B/P (MAP) Pulse Ox O2 Delivery O2 Flow Rate FiO2 06/15/17 07:07 36.5 64 16 122/73 76 105/67 Problem Qualifiers (1) Depression: Depression Type: major depressive disorder Major depression recurrence: single episode Active/Remission status: currently active Major depression episode severity: severe Psychotic features: without psychotic features Qualified Codes: F32.2 - Major depressive disorder, single episode, severe without psychotic features
[2017-06-15] MEDS: LORAZEPAM 0.5 MG TAB PO SCH ×2 (14:08→22:58)
[2017-06-15] MEDS ORDERED: LORAZEPAM 0.5 MG TAB PO SCH (22:00)
[2017-06-15] MEDS: TRAZODONE HCL 50 MG TAB PO SCH (22:58)
[2017-06-16 06:54] VITALS: BP_SYST 100; BP_SYST 112; BP_DIAS 62; BP_DIAS 70; PULSE 61; PULSE 85; TEMP 36.6
[2017-06-16] MEDS: DOXYCYCLINE HYCLATE 100 MG CAP PO SCH (08:38)
[2017-06-16] MEDS ORDERED: DSY50 PO (08:56)
[2017-06-16] MEDS ORDERED: ZLF/100 PO (08:56)
[2017-06-16] MEDS ORDERED: LORAZEPAM 1 MG TAB PO SCH (09:00)
[2017-06-16] MEDS ORDERED: SERTRALINE HCL 100 MG TAB PO SCH (09:00)
[2017-06-16] MEDS ORDERED: ATV5 PO (09:08)
--- NOTE | 2017-06-16 09:35 | Discharge Instructions ---
Discharge Information Report Includes Report will include the: Discharge Instructions & Summary Admission Admission Date / Time: Jun 06, 2017 at 13:18 Reason for Admission: Suicidal Ideation Discharge Discharge Diagnosis / Problem: Panic disorder, major depressive disorder Condition at Discharge: Fair Discharge Goals Goal(s): Improve function, Improve disease control, Learn about illness, Therapeutic intervention, Specific goals (refer for outpatient mental health care) Activity Recommendations Activity Limitations: per Instructions/Follow-up section . Instructions / Follow-Up Instructions / Follow-Up . SPECIAL CARE INSTRUCTIONS: 1. Follow through with your scheduled aftercare appointments. If unable to keep an appointment, please call to reschedule. 2. Take your medication only as prescribed. Medication should not be changed or stopped without the approval of your doctor. In the event of worsening symptoms or concerns about side effects, contact your doctor immediately. Instructions for tapering off lorazepam: Week 1: Take 1mg (two 0.5mg tablets) in the morning, 0.5mg mid-day, and 0.5mg at bedtime. Week 2: Take 1mg in the morning and 0.5mg at bedtime. Week 3: Take 1mg in the morning. Week 4: Take 0.5mg in the morning. Week 5: Stop. 3. Utilize new healthy coping skills, anger management skills, and stress management skills learned during your hospitalization. Journal feelings and process them with a support person. Identify stressors or situations that may result in relapse, deterioration or inappropriate behaviors and develop a plan to deal with those issues. 4. If your coping skills are ineffective and you are in crisis, contact your outpatient providers for direction. If unable to reach your providers, please call the CAN HELP LINE AT or go to the closest Emergency Room. 5. Avoid alcohol and un-prescribed drugs. 6. You have been provided with the Mental Health Advance Directives Pamphlet for your review. AFTERCARE APPOINTMENTS: * Please call your insurance company prior to your scheduled appointment to confirm your aftercare providers are covered. Take your insurance information to your appointments. . Discharge / Aftercare Planning Primary Care Physician: Name: Dr Larose Date of Appointment: Jun 21, 2017 Time of Appointment: 1:45pm Psychiatrist: Name: [facility] [address] [facility] Date of Appointment: Jun 27, 2017 Time of Appointment: 1:00pm Appointment Notes: intake with Tanya Jones Therapist: Name Of Therapist: [facility] Appointment Comments: will refer after intake Swahili Teacher: Name: None Partial or Psych Rehab: Name: [facility] Appointment Comments: They will call you at home to schedule tour. . Follow-Up Care Plan for Follow-Up Care: See above. Current Hospital Diet Patient's current hospital diet: Low Lactose Diet Discharge Diet Recommended Diet: Regular Diet Procedures Procedures Performed: No Pending Studies Pending Studies at Discharge: No Medical Emergencies . Who to Call and When: Medical Emergencies: For questions or emergencies related to your hospital stay, please contact the Inpatient Behavioral Health Unit at [phone]. A midlevel provider is on-call 21/02 for the Behavioral Health Unit for emergencies At any time you feel your situation is an emergency, you may also call 911 immediately. . Non-Emergent Contact Non-Emergency issues call your: Primary Care Provider, Psychiatrist, Therapist Past History Medical & Surgical History: (1) Lyme disease Advance Directives Existing Advance Directive: No Do You Have an Existing Mental: No Existing Living Will: No Existing Power of Social Services Director: No Advance Directives Info Given: To Pt/S.O. Advance Directives Reason: Declines as Mental Health Visit. Discharge Summary Admission HPI Per the Admitting provider: On review of records, this is the patient's first admission to our facility, but he has been seen in the emergency room 3 times in the past 6 days (prior visits for chest pain and shortness of breath). He reported that he was "triggered" 10 weeks ago, and since that time has been increasingly anxious, with chest pain and shortness of breath, decreased appetite, nausea, numbness in his left arm, and vision problems. He had a noncontrast head CT at the time of his first emergency room visit 05/31/2017, which was normal. His Lyme antibody was positive, and he was started on doxycycline. He returned to the ER 2 days later reporting shortness of breath and intermittent epigastric pain for the past 10 weeks. He was hypertensive and tachycardic, and had a CT angiogram of the chest which showed no acute findings or evidence of PE. His shortness of breath was felt to be due to asthma or GERD, and he was given albuterol, Zantac, and Protonix. He then re-presented to the emergency room today reporting anxiety for the past several weeks, feeling overwhelmed, defeated, and said he had lost the will to live. He reported 4 episodes of severe anxiety over the past several weeks, which result in "a heavy stress and strain on my heart." He reported multiple other physical symptoms that accompanied these episodes, including shortness of breath, hyperventilation, left arm numbness, and felt exhausted afterwards. The first 2 episodes lasted 5 -10 minutes, and the second 2 episodes occurred this past weekend and were longer. He told emergency room staff stating that he did not feel safe going home, and would hang himself. He signed in voluntarily, but was very anxious throughout the process, and had many questions about admission. The liaison nurse reviewed the Common Language documents with him. He was seen with Eliud Howard, 3. He reports worsening "physical issues" for the past 10 weeks, including stomach pain, chest pain, SOB, and this led to inability to eat, with a 20-30 lb estimated weight loss over the past 10 weeks. He reports episodes of feeling "completely overwhelmed in my chest area, this major stress," on Tuesday, Sat. and Sun., lasting an hour the past two times. He describes "heavy pressure on my chest area, it just shuts me down, I can't move until it's over." He thinks "something's triggering this in my body, a hormone or a stimulant, because after it goes back to normal." He feels he has a "physical" problem and not an "emotional" one. He says the "things that are happening are taking away my will to live." He says he told his parents "I can' t take it anymore, I'm going to kill myself." He admits to a "buildup" of feeling overwhelmed, and feels "there's nothing left for me in this life." He has been having suicidal thoughts for the past few days, "since I went to the ER and everything came back negative." He has thought about hanging himself, and feels "no one can relate to me." He endorses hopelessness, and says he is "not so sure I can recover." He denies panic attacks prior to the past few weeks. 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 He says he has had "health issues, pain" for years so has not worked in over 6 years. Despite his self described severe symptoms, he has never seen a doctor prior to his ER visits, and can't explain why. He does not think he is depressed, describes mood as "kind of subject to my physical condition." He admits to worsening mood over the past couple months, decreased interest, is isolating at home in his bedroom, sleep is disrupted as he is spending most of time in bed, denies guilt, and denies worrying, and denies that he is worried about having another panic attack. He denies a history of agustín, psychosis, OCD, PTSD. He says he "has a strong preference for sober mood , stable emotions." Admission Exam Per the Admitting provider: Please see admission H&P. Consultations None. Hospital Course (1) Panic disorder Most likely diagnosis is panic disorder, although at this point cannot rule out anxiety due to general medical condition (Lyme disease). Also rule out major depressive disorder. Get collateral information from family (regarding his adult life, previous level of functioning prior to the past 10 weeks, they're understanding of why he has not been able to work for the past 6 years, if there was any worsening of symptoms after his head injury 13 years ago, and clarification of recent stressors, specifically why he was asked to stop volunteering). Family meeting with parents. They will need to be involved in discharge safety planning as well. We briefly discussed medication options for panic, specifically an SSRI antidepressant. The patient would like to try nonpharmacologic methods of handling his anxiety first. Refer for outpatient therapy and psychiatric follow -up. Hydroxyzine as needed for sleep and anxiety. Encourage participation in unit groups and programming. Work on healthy coping skills. 06/07 -Patient continues to report high anxiety and poor sleep. He continues to refuse a trial of an SSRI, although he has been educated repeatedly about the risks, benefits and side effects. Provided him with an Up To Date patient handout about SSRIs and encouraged him to continue to educate himself and ask questions. If he agrees, will start escitalopram 10mg. -Reviewed behavioral techniques he can utilize to manage anxiety. Avoiding benzos if possible, as patient states he does not want medication that will be sedating, but he has worsened throughout the day today and has approached staff multiple times asking for something prn for anxiety, doesn't feel hydroxyzine worked, so will try lorazepam 0.5mg q 6 hrs prn. -Patient is requesting a different medication for sleep. We reviewed the risks , benefits, and side effects of trazodone, including priapism, and he agreed to a trial. I will order 50 mg daily at bedtime tonight, which can be repeated once if needed. 06/08/17 -The patient reports that he has responded favorably to Ativan, but remains anxious. He has had no further panic episodes, however, we spent a great deal of time discussing a trial of SSRI, and today the patient tells me that he is inclined to try sertraline, prefers wishes to discuss this decision with his parents. I was able to speak with the patient's father about this recommendation, and the patient's father was in agreement with the plan to use an SSRI, but wished to do some "online research" first. - The patient tells me that he slept well with trazodone, and finds this to be a helpful medication. 06/09/17 -- The patient reports that he has had no further panic attacks. He also reports that he received substantial relief, but not complete relief, from lorazepam 0.5 mg every 6 hours. He says that he is asking for it routinely 3 times a day, but does not require it during the night. The plan is to address the patient's depression and anxiety in a 2 pronged approach: Address the possible infectious disease component secondary to Lyme disease, and treat both the depression and anxiety with an SSRI (sertraline), together with lorazepam while we are titrating the dose of sertraline. 06/10/17 -- The patient reports significantly reduced anxiety, and attributes this improvement to a combination of sertraline and lorazepam. He has had no further panic episodes, and finds that his levels of anxiety or now manageable. He understands that the goal is to eventually taper and discontinue lorazepam wants he is at a standard dose of sertraline. We are proceeding carefully with sertraline because of the patient's various physical complaints, and we want to avoid side effects that may discourage the patient from adherence. 06/11/17 -- raised zoloft to 75mg for 06/12 dose, maintained ativan 1mg tid for now with plan to wean down dose as further improvement occurs, maintained trazodone at 50mg for insomnia at bedtime 06/12/17 -- raised zoloft to 100mg for 06/13 dose. lower ativan to 1mg 9am and 0.5mg 2pm and 1mg 9pm for today, with room to lower ativan further tomorrow if anxiety not worsened with this med adjustment. pt could envision holding 2pm dose on 06/13 if tolerating lowering of 2pm dose today well. 06/13 -- Continue current medications, and refer for outpatient follow-up with a psychiatrist and therapist (referred to [facility]). Also explore options for psych rehabilitation or clubhouse, as he would benefit from increased socialization and feels the programming here has been helpful. 06/14 -- Patient encouraged to engage more with discharge planning, and to work on ways to increase his socialization at home and ensure a robust safety plan. He has been resistant to this, stating he wants to stay in the hospital until he is completely recovered, and we discussed that hospitalization will be acute only, and that much of his recovery will occur at home in the outpatient setting. -- Refer to the base service unit for psych rehabilitation and clubhouse. Has an intake at [facility] 06/27/2017. 06/15 -- Panic improved, although remains generally anxious. Decrease lorazepam to 1 mg every morning and 0.5 mg in the afternoon at bedtime, and increase sertraline to 150 mg daily. Patient was again educated about the risks of benzodiazepine use, and the recommendations to use this medication for short- term treatment and to taper off of it over the next few weeks. 06/16 -- Reviewed instructions for tapering off lorazepam by decreasing by 0.5 mg a week over the next 4 weeks, and reviewed potential side effects of medication, as well as the risk of tolerance/addiction, risk of drug drug interactions, and the importance of abstaining from alcohol or other sedating agents. -- Continue sertraline 150 mg daily, and follow-up with psychiatrist and therapist at [facility]. Referred to the [facility] service unit and [facility] for ongoing treatment. (2) Depression As patient's anxiety has improved, he has become more aware of his severe depressive symptoms, with ongoing suicidal ideation. Sertraline started and titrated upwards as above. (3) Suicidal ideation Every 15 minute checks for safety. Work on healthy coping skills and discharge safety plan. 06/08/17 - Today, the patient says that he is not having active suicidal thoughts, but continues to say that he considers suicide to be an option in the event that his feelings of anxiety, depression, and his various physical complaints don't improve over time. I was able to help him understand that this is "a bad time that will pass," and that "things will get better." The patient said that this was reassuring and that he hopes one day to be able to talk to other people who are going through similar experiences in order to help them. He agrees to notify staff should he develop any active suicidal thoughts. He does not have any specific plan for suicide at this point. 06/09/17 - The patient endorses what he refers to his overwhelming feelings of sadness, combined with high levels of anxiety, and multiple ongoing arthralgias and myalgias which are believed to be secondary to Lyme disease in his case. Today , he tells me that without substantial relief from his symptoms of depression, anxiety and physical complaints he will act on his thoughts of committing suicide although he contracts for safety in the hospital and says "I wouldn't do anything while I'm under treatment here." The patient clearly continues to require inpatient psychiatric hospitalization 06/10/17 - The patient tells me that he is not currently having suicidal thoughts, but feels that were he to return to the community at this point the suicidal thoughts with intent would potentially recur, in the absence of substantial improvement in his overwhelming feelings of depression, combined with ongoing myalgias and arthralgias. 06/13 - Patient encouraged to work on his discharge safety plan. 11/16 - Patient consistently denying suicidal thoughts, and was able to review his safety plan in detail. (4) Lyme disease Continue home dose of doxycycline, and follow-up with outpatient provider as directed by emergency room staff. He does not have a PCP, and states his parents were working on getting him medical assistance. 06/08/17 - Both the KATIE and the Western blot tests have come back positive for Lyme disease. The patient is taking doxycycline 100 mg twice a day. I let him know that it is possible that his depression, and to a lesser extent, his anxiety may be attributable to Lyme disease. However, he has had his physical symptoms for at least 6 years, and his symptoms of anxiety have emerged largely in the past 11 weeks, circumstance which suggests that there is more going on clinically than simply complications of Lyme disease. 06/09/17 - Obtain an infectious disease consultation in order to receive recommendations for treatment, as necessary, following his planned three-week course of doxycycline. Also like to rule out, if possible, central nervous system involvement. 06/10/17 - Dr. Smith spoke with Dr. Agosto of [facility] in order to obtain recommendations regarding the patient's Lyme Disease. Dr. Agosto recommended continuing doxycycline 100 mg twice a day for an additional 1 month, with outpatient follow -up as indicated by an absence of resolution of the patient's symptoms. 06/13 - Refer for outpatient follow-up in preparation for discharge. 06/14 - Referred to Dr. Tafoya with an appointment on . 06/16 - Patient instructed to continue his doxycycline, and to follow-up with his PCP next week. Risk Factors Assessment Male: Yes : Yes /single/: Yes Higher / Fall in social status: Yes Access to guns: No Health problems: Yes Mental Health Diagnoses: Yes Substance use disorders: No Previous attempt: No Previous psychiatric stay: No Hopelessness: No Smoker: No Protective Factors Assessment Christianity beliefs: No : No Responsible for young children: No Employed: No Stable relationships: No Supportive family: Yes Good rapport with provider: No Absence of risk factors above: Yes (risk factors were mitigated by admission to the inpatient unit, educating the patient about his diagnoses and symptoms, starting medication to target anxiety and depression, involving him in groups and therapy on the unit, working on healthy coping skills and a discharge safety plan, working on behavioral techniques for managing anxiety, involving his parents and a family meeting, and referring him for outpatient mental healthcare. He has improved on medication, is participating in groups and therapy, anxiety and depression have improved, he is consistently denying suicidal thoughts and has not engaged in self-injurious behavior here, and as he is no longer at acute risk of harm to himself, can be discharged and managed as an outpatient at this time. He does not of significant risk factors for harm to others.) Day of Discharge Assessment Hospital course: On admission, the patient was extremely anxious did not feel that his symptoms were due to a mental health condition, and was convinced that there was something medically wrong with him that head not yet been identified. Much time was spent educating him about the diagnosis of panic disorder and depression, and encouraging him to consider trying medication. He initially tried hydroxyzine for sleep and anxiety, which was ineffective, so was started on lorazepam for anxiety, which was beneficial, and was increased to 1 mg 3 times a day. He eventually agreed to a trial of an SSRI, and was started on sertraline, which was increased 250 mg daily throughout the course of his stay. He was also started on trazodone for sleep, which she felt was beneficial. A family meeting was held with the patient and his parents on 06/07/2017. His mother brought in information she had printed off about panic disorder, saying that she believed that with the patient was dealing with. The patient was initially dismissive of this, and significant discussion was held around his symptoms and that this was likely the most accurate diagnosis. 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 In 2003 he suffered a head injury, and had no treatment at the time, but later required surgery for an injury that he was told was outside of the brain and that there would be no long-term effects. 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 In 2010, he decided to change his lifestyle, sold his car, gave up technology, and decided to live a smaller life. His father said that he had "confessed his sins and a desire to change," and the patient was upset that his father provided this information, and did not want to discuss it further. In 2011, his paternal grandfather and he struggled with this as they were close. His older brother lives at home and has schizophrenia, and the patient does not associate with him much. The patient and his parents shared that they were very worried that the patient would also end up with schizophrenia. 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 While the patient had been insisting that he did not know the reason for this, his mother disclosed that he had feelings for the woman running the farm and she felt uncomfortable. Although he had been instructed not to continue to contact her, he continued to write and call her, demanding answers about why he was laid off. He was ultimately charged with criminal harassment, and has a hearing coming up in July. The patient insisted that this was not the reason for his anxiety, but his parents felt it was a significant contributing factor. Parents shared that he doesn't drive and is socially isolated, with few contacts outside of his family. He was able to engage socially with peers and staff on the unit, and affect brightens significantly when he was interacting with others. He appeared to enjoy playing games with peers, and his affect was often incongruent with his stated mood, as he appeared euthymic and cheerful, but continued to report low mood. His suicidal thoughts improved, as did anxiety and mood, and he was able to work on his safety plan and a plan to increase his socialization at home. He was very resistant to discussing discharge, feeling that he needed to be in the hospital for an extended period of time, but after a 10 day stay, felt that he was ready to try going home. He was referred to [facility] as he requested outpatient services similar to the group programming he had been receiving in the hospital. He also discussed options for finding a new volunteer position. The results of his Lyme tests were reviewed with him, and both the KATIE and Western blot came back positive. Infectious disease was contacted and recommended that he continued doxycycline 100 mg twice a day for an additional month, and to follow-up with his PCP. He was referred to Dr. Doe for primary care services. Day of discharge assessment: The patient states that his mood and anxiety have improved significantly from admission, but he continues to struggle in the mornings, and feels that he has to "stay in bed until my meds kicked in." He is able to list multiple things that he can do to help improve his symptoms in the morning, including getting out of bed, going outside, and walking his dogs. He denies any suicidal thoughts, and is able to review his safety plan in detail, including spending time with animals on the farm, walking his dogs, meditating, talking to his parents, and ultimately calling his outpatient providers, the crisis line, or going to the emergency room. He agrees to return to the hospital if he feels unsafe, and feels that his treatment here has been helpful. He feels his medications are helpful, and denies side effects. We reviewed the plan to taper off his lorazepam over the next 4 weeks, and a written taper schedule was provided in his discharge paperwork. We also reviewed his outpatient follow-up plans, both medical and psychiatric. He has not had panic attacks since the beginning of his hospital stay, and overall anxiety is much decreased. Well nourished, well developed WM appearing stated age. Casually dressed and adequately groomed. Calm and cooperative. Seated in NAD, with fair eye contact and no abnormal movements. Speech is normal rate, volume, and tone. Mood is "okay," and affect is stable and congruent. Thoughts are linear, logical and goal directed. The patient denied suicidal and homicidal ideation and was able to safety plan. No paranoia, delusions, or hallucinations, and did not appear to be responding to internal stimuli. Cognition was grossly intact. Alert and oriented to person, place and time. Intelligence is consistent with level of education. Insight and and judgment are fair. Laboratory Test 06/06/17 11:00 06/06/17 11:24 Urine Color YELLOW Urine Appearance CLOUDY Urine pH >= 9.0 Urine Specific [place] 1.027 Urine Protein NEG Urine Glucose (UA) NEG Urine Ketones 1+ Urine Occult Blood NEG Urine Nitrite NEG Urine Bilirubin NEG Urine Urobilinogen NEG Urine Leukocyte Esterase TRACE Urine WBC (Auto) 1-5 Urine RBC (Auto) 0-4 Urine Hyaline Casts (Auto) 0 Urine Epithelial Cells (Auto) 0-5 Urine Bacteria (Auto) NEG Urine Opiates Screen NEG Urine Methadone, Qualitative NEG Urine Barbiturates NEG Urine Phencyclidine (PCP) Level NEG Ur Amphetamine/Methamphetamine NEG MDMA (Ecstasy) Screen NEG Urine Benzodiazepines Screen NEG Urine Cocaine Metabolite NEG Urine Marijuana (THC) NEG White Blood Count 5.48 Red Blood Count 5.60 Hemoglobin 16.7 Hematocrit 47.9 Mean Corpuscular Volume 85.5 Mean Corpuscular Hemoglobin 29.8 Mean Corpuscular Hemoglobin Concent 34.9 RDW Standard Deviation 39.0 RDW Coefficient of Variation 12.4 Platelet Count 259 Mean Platelet Volume 10.2 Sodium Level 140 Potassium Level 4.0 Chloride Level 107 Carbon Dioxide Level 27 Anion Gap 6.0 Blood Urea Nitrogen 16 Creatinine 1.11 Est Creatinine Clear Calc Drug Dose 93.8 Estimated GFR () 101.3 Estimated GFR (Non- 87.4 BUN/Creatinine Ratio 14.6 Random Glucose 157 Calcium Level 9.6 Total Bilirubin 0.6 Aspartate Amino Transferase (AST) 9 Alanine Aminotransferase (ALT) 17 Alkaline Phosphatase 45 Total Protein 7.8 Albumin 4.7 Globulin 3.1 Albumin/Globulin Ratio 1.5 Thyroid Stimulating Hormone (TSH) 0.727 Salicylates Level < 1.7 Acetaminophen Level < 2 Ethyl Alcohol mg/dL < 3.0 Total Time Total Time Spent (min): Greater than 30 minutes Total Time Included: examination of the patient, discharge planning, medication reconciliation Tobacco Cessation at Discharge Smoking Status: Never Smoker FDA approved Prescription: non-smoker Problem Qualifiers (1) Depression: Depression Type: major depressive disorder Major depression recurrence: single episode Active/Remission status: currently active Major depression episode severity: severe Psychotic features: without psychotic features Qualified Codes: F32.2 - Major depressive disorder, single episode, severe without psychotic features
[2017-06-16] MEDS: LORAZEPAM 0.5 MG TAB PO SCH (14:17)
== END 2017-06-16 14:45 | disposition home or self-care (01) | DRG 880 ==
LOC: C.EDB 10:39 → C.MHU 13:18
PROVIDERS: ADMIT Psychiatry & Neurology Psychiatry; ATTEND Psychiatry & Neurology Psychiatry
DX: F41.0 Panic disorder [episodic paroxysmal anxiety] (principal); F32.2 Major depressive disorder, single episode, severe without psychotic features; R45.851 Suicidal ideations; A69.20 Lyme disease, unspecified; F06.4 Anxiety disorder due to known physiological condition

== ENCOUNTER 2017-07-13 19:37 | Emergency (ER) | payer OTHER ==
[~2017-07-13] VITALS: Ht 180.3 cm; Wt 69.3 kg
[~2017-07-13 19:37] MED LIST changes: +ATV5 PO; -DOXY100C76 PO; +DSY50 PO; -IBUP-1451 PO; +RANI150T3 PO; +ZLF/100 PO; -ZNTT/150 PO
[2017-07-13 19:45] VITALS: TEMP 36.8; Ht 180.3 cm; Wt 69.3 kg
[2017-07-13] MEDS ORDERED: MIRT30TA2 PO (20:13)
[2017-07-13] MEDS ORDERED: TRAZ100T29 PO (20:13)
[2017-07-13] MEDS ORDERED: PROP10TA7 PO (20:13)
[2017-07-13] MEDS ORDERED: LORA-741 PO (20:13)
--- NOTE | 2017-07-13 20:28 | EMERGENCY ROOM VISIT NOTE ---
History Report prepared by Param: Lena Miranda Under the Supervision of: Dr. Eliud Arriaga M.D. First contact with patient: 19:50 Chief Complaint: ANXIETY Stated Complaint: LYMES DISEASE, ANXIETY ATTACK History of Present Illness The patient is a 32 year old male who presents to the Emergency Room with complaints of intermittent panic attacks for the last three days [employer]. He was recently discharged from the [facility] 2 hours [employer]. He was discharged and advised to come to the ED. He was recently diagnosed with Lyme disease on May 31, 2017. He notes his panic attacks started s/p diagnosis, though they have worsened. He notes losing 30 pounds prior to his diagnosis. He was on Doxycycline for five weeks. He notes abdominal pain, loss of appetite, chest pain, and chronic right shoulder pain. He denies any fevers, rash, and headache. He was being treated at [place] for anxiety and depression. He denies any current SI. He notes that he mentally feels better. He notes that [place] often gets tick bites, [place] Source of History: patient Onset: three days [employer] Position: other (global) Quality: other (paniac attacks) Timing: intermittent Associated Symptoms: + chest pain, + abdominal pain, No fevers, No headache , No rash Note: He notes paniac attacks, loss of appetite, and chronic right shoulder pain. He notes recent weight loss of 30 pounds. He denies any current SI. Review of Systems As above. All other systems reviewed were negative unless otherwise stated in history. At least 10 were reviewed Past Medical & Surgical Medical Problems: (1) Anxiety (2) Chronic pain (3) Depression (4) Lyme disease (5) Panic disorder (6) Suicidal ideation Family History Patient reports no known family medical history. Social History Smoking Status: Never Smoker Drug Use: none Marital Status: single Housing Status: lives with family Occupation Status: unemployed Current/Historical Medications Scheduled Doxycycline Hyclate (Vibramycin), 100 MG PO BID Lorazepam (Ativan), 0.5 MG PO BID Mirtazapine Soltab (Remeron Soltab), 30 MG PO DAILY Propranolol Hcl (Inderal), 10 MG PO TID Trazodone Hcl (Trazodone), 100 MG PO HS Allergies Coded Allergies: No Known Allergies (Unverified , 07/13/17) Physical Exam Vital Signs Date Time Temp Pulse Resp B/P (MAP) Pulse Ox O2 Delivery O2 Flow Rate FiO2 07/13/17 22:43 89 20 130/81 96 07/13/17 22:31 85 18 121/79 97 Room Air 07/13/17 21:13 94 20 128/81 97 Room Air 07/13/17 19:45 36.8 112 18 173/108 95 Room Air Physical Exam General: Non-ill appearing young male in no acute distress. HEENT: Normal cephalic atraumatic. Pupils are equal round and reactive to light. Extraocular movements are intact. Oropharynx is pink with moist mucous membranes. No swelling of the mouth lips or tongue. Neck: Supple with a midline trachea. No meningeal signs or stiffness, no JVD or bruits. No Stridor. Chest: Clear to auscultation bilaterally. No wheezes or rhonchi. No increased work of breathing. Heart: regular rate and rhythm. Abdomen: Soft nontender, nondistended without rebound guarding or rigidity. Extremities: No cyanosis clubbing or edema. No calf tenderness or assymetry Spine/Back. Non tender to palpation. No CVA tenderness Skin: Good turgor without rashes. Neurologic exam: Cranial nerves two through 12 are intact. Motor and sensation are intact and symmetrical throughout. No tremor. Psych: Denies SI. Medical Decision & Procedures Laboratory Results 07/13/17 20:30 Red Blood Count 5.11, Mean Corpuscular Volume 87.5, Mean Corpuscular Hemoglobin 30.3, Mean Corpuscular Hemoglobin Concent 34.7, Mean Platelet Volume 9.7, Neutrophils (%) (Auto) 73.3, Lymphocytes (%) (Auto) 18.6, Monocytes (%) (Auto) 6.9, Eosinophils (%) (Auto) 0.6, Basophils (%) (Auto) 0.3, Neutrophils # (Auto) 5.74, Lymphocytes # (Auto) 1.46, Monocytes # (Auto) 0.54, Eosinophils # (Auto) 0.05, Basophils # (Auto) 0.02 07/13/17 20:30 Test 07/13/17 20:30 White Blood Count 7.83 K/uL (4.8-10.8) Red Blood Count 5.11 M/uL (4.7-6.1) Hemoglobin 15.5 g/dL (14.0-18.0) Hematocrit 44.7 % (42-52) Mean Corpuscular Volume 87.5 fL (80-100) Mean Corpuscular Hemoglobin 30.3 pg (25-34) Mean Corpuscular Hemoglobin Concent 34.7 g/dl (32-36) Platelet Count 243 K/uL (130-400) Mean Platelet Volume 9.7 fL (7.4-10.4) Neutrophils (%) (Auto) 73.3 % Lymphocytes (%) (Auto) 18.6 % Monocytes (%) (Auto) 6.9 % Eosinophils (%) (Auto) 0.6 % Basophils (%) (Auto) 0.3 % Neutrophils # (Auto) 5.74 K/uL (1.4-6.5) Lymphocytes # (Auto) 1.46 K/uL (1.2-3.4) Monocytes # (Auto) 0.54 K/uL (0.11-0.59) Eosinophils # (Auto) 0.05 K/uL (0-0.5) Basophils # (Auto) 0.02 K/uL (0-0.2) RDW Standard Deviation 41.3 fL (36.4-46.3) RDW Coefficient of Variation 13.0 % (11.5-14.5) Immature Granulocyte % (Auto) 0.3 % Immature Granulocyte # (Auto) 0.02 K/uL (0.00-0.02) Anion Gap 6.0 mmol/L (3-11) Est Creatinine Clear Calc Drug Dose 128.3 ml/min Estimated GFR () 136.3 Estimated GFR (Non- 117.6 BUN/Creatinine Ratio 24.2 (10-20) Calcium Level 8.9 mg/dl (8.5-10.1) Total Bilirubin 0.3 mg/dl (0.2-1) Direct Bilirubin < 0.1 mg/dl (0-0.2) Aspartate Amino Transf (AST/SGOT) 12 U/L (15-37) Alanine Aminotransferase (ALT/SGPT) 19 U/L (12-78) Alkaline Phosphatase 54 U/L (45-117) Total Protein 6.9 gm/dl (6.4-8.2) Albumin 4.1 gm/dl (3.4-5.0) Lipase 174 U/L (73-393) Thyroid Stimulating Hormone (TSH) 1.270 uIu/ml (0.300-4.500) Chemistry Specimen Hemolysis Laboratory studies as stated above per my review. Medications Administered Medications (Trade) Dose Ordered Sig/Jeny Route Start Time Stop Time Status Last Admin Dose Admin Ceftriaxone Sodium 2000 mg/ Dextrose 70 ml @ 100 mls/hr ONE STAT IV 07/13/17 21:31 07/13/17 22:12 DC 07/13/17 21:49 100 MLS/HR ECG Indication: other (paniac attacks) Rate (beats per minute): 95 Rhythm: normal sinus Findings: no acute ischemic change, other (Normal intervals) Change: No acute changes when compared to 06/02/2017. ED Course 1753: Past medical records reviewed. The patient was evaluated in room B12B, and a complete history and physical examination were performed. 2129: I reassessed the patient at this time. He is feeling better and resting comfortably. 2130: Ordered Ceftrixone Sodium 2,000 mg/Dextrose 70 ml @ 100 mls/hr IV 2225: I reassessed the patient at this time. He is feeling better and resting comfortably. I discussed the results and treatment plan with the patient. I answered all pertaining questions that he had. He expressed understanding and verbalized agreement. The patient will be discharged home. Medical Decision Differentials include, but are not limited to; anxiety, Lyme disease, cardiac disease, and electrolyte or metabolic abnormality. This patient comes in as described above. He was placed in room B 12. He was diagnosed Lyme disease at the in May and did receive a course of antibiotics and he felt like he felt significantly better and had less anxiety after being started on the doxycycline. He feels that when he was in the [facility] and not been received doxycycline, He's gotten worse. He has no headache, neck pain, or stiffness or fever. No joint aches. He says his depression is doing much better and he denies suicidal or homicidal ideations. He wants to be started back on doxycycline and has appointment to see Dr. Nunez next week who has treated his family for Lyme. EKG was obtained blood work was obtained. I discussed the case with both the patient's mother who is at the bedside. Did work was unremarkable. They're very concerned that this is Lyme related and want to be treated aggressively for this. I did give him 2 g of IV Rocephin we'll start him back on doxycycline and follow-up with his doctor this coming week for recheck I recommend he follow up with infectious disease specialist. Return to the ER if worsening of symptoms, fever or chills, headache, any new problems or concerns Medication Reconcilliation Current Medication List: was personally reviewed by me Blood Pressure Screening Patient's blood pressure: Elevated blood pressure related to anxiety Impression Primary Impression: Acute anxiety Additional Impression: Lyme disease Scribe Attestation The scribe's documentation has been prepared under my direction and personally reviewed by me in its entirety. I confirm that the note above accurately reflects all work, treatment, procedures, and medical decision making performed by me. Departure Information Dispostion Home / Self-Care Prescriptions Doxycycline Hyclate (VIBRAMYCIN) 100 Mg Cap 100 MG PO BID for 21 Days, #42 CAP Prov: Eliud Arriaga M.D. 07/13/17 Referrals No Doctor, Assigned (PCP) Forms HOME CARE DOCUMENTATION FORM, IMPORTANT VISIT INFORMATION Patient Instructions My [facility] Additional Instructions Rest Drink plenty of fluids Use Doxycycline 100 mg twice a day For anxiety, use your Ativan as directed Return if: worsening symptoms, fever, any new problems or concerns Problem Qualifiers
[2017-07-13 21:05] LABS: BASO % 0.3 %; BASO ABS # 0.02 K/uL (0-0.2); COMPLETE YES; EOS % 0.6 %; HEMATOCRIT 44.7 % (42-52); IG% 0.3 %; LYMPH % 18.6 %; LYMPH ABS # 1.46 K/uL (1.2-3.4); MEAN CELL VOLUME 87.5 fL (80-100); MEAN CORPUSCULAR HEMOGLOBIN 30.3 pg (25-34); MEAN CORPUSCULAR HGB CONC 34.7 g/dl (32-36); MEAN PLATELET VOLUME 9.7 fL (7.4-10.4); MONO % 6.9 %; NEUT % 73.3 %; PLATELET COUNT 243 K/uL (130-400); RED BLOOD COUNT 5.11 M/uL (4.7-6.1); WHITE BLOOD COUNT 7.83 K/uL (4.8-10.8)
[2017-07-13 21:28] LABS: ALKALINE PHOSPHATASE 54 U/L (45-117); ALT/SGPT 19 U/L (12-78); AST/SGOT 12 U/L (15-37); BLOOD UREA NITROGEN 20 mg/dl (7-18); BUN/CREATININE RATIO 24.2 (10-20); CALCIUM 8.9 mg/dl (8.5-10.1); CARBON DIOXIDE 27 mmol/L (21-32); CHLORIDE 107 mmol/L (98-107); CREATININE 0.81 mg/dl (0.60-1.40); GLUCOSE 143 mg/dl (70-99); POTASSIUM 3.7 mmol/L (3.5-5.1); SODIUM 140 mmol/L (136-145)
[2017-07-13] MEDS ORDERED: CEFTRIAXONE SOD INJ 2,000 MG in DEXTROSE 5% 50ML 50 ML IV STA (21:31)
[2017-07-13] MEDS ORDERED: DOXY100C2 PO (22:04)
[2017-07-13 22:43] VITALS: BP 130/81; PULSE 89; O2SAT 96
--- NOTE | 2017-07-14 12:44 | Pharmacy Progress Note ---
ED Pharmacist Progress Note Date of Service: Jul 14, 2017. [facility] called from [facility] stating the Rx for Doxycycline Hyclate is not covered by the patient's insurance, however the Monohydrate salt is covered. I discussed the case with Dr Cloud, he Ok'd the substitution of Monohydrate salt in same dose as it is therapeutically equivalent.
== END 2017-07-13 22:44 | disposition home or self-care (01) ==
LOC: C.EDB 19:38
DX: F41.9 Anxiety disorder, unspecified (principal); A69.20 Lyme disease, unspecified; Z79.899 Other long term (current) drug therapy; F32.9 Major depressive disorder, single episode, unspecified

== ENCOUNTER 2017-07-20 19:30 | Emergency (ER) | payer OTHER ==
[~2017-07-20] VITALS: Ht 180.3 cm; Wt 68.6 kg
[~2017-07-20 19:30] MED LIST changes: +DOXY100C2 PO; +LORA-741 PO; +MIRT30TA2 PO; +PROP10TA7 PO; +TRAZ100T29 PO
[2017-07-20 19:32] VITALS: TEMP 36.5; Ht 180.3 cm; Wt 68.6 kg
[2017-07-20 20:10] LABS: MANUAL MICROSCOPIC REQUIRED? NO; REVIEW REQ? NO; URINE APPEARANCE CLEAR (CLEAR); URINE BILIRUBIN NEG (NEG); URINE COLOR YELLOW; URINE NITRITE NEG (NEG); URINE PH 5.5 (4.5-7.5); UROBILINOGEN NEG (NEG)
[2017-07-20 20:29] LABS: BENZODIAZEPINE, URINE NEG (NEG); COCAINE,URINE NEG (NEG); PHENCYCLIDINE, URINE NEG (NEG)
[2017-07-20] MEDS ORDERED: CEFTRIAXONE SOD INJ 1 GM ADDVIAL IV STA (20:33)
[2017-07-20 20:41] LABS: BASO % 0.2 %; BASO ABS # 0.02 K/uL (0-0.2); COMPLETE YES; EOS % 0.7 %; HEMATOCRIT 47.6 % (42-52); IG% 0.2 %; LYMPH ABS # 1.77 K/uL (1.2-3.4); MEAN CELL VOLUME 88.3 fL (80-100); MEAN CORPUSCULAR HEMOGLOBIN 30.1 pg (25-34); MEAN PLATELET VOLUME 9.6 fL (7.4-10.4); MONO % 9.1 %; NEUT % 68.8 %; PLATELET COUNT 247 K/uL (130-400); RED BLOOD COUNT 5.39 M/uL (4.7-6.1); WHITE BLOOD COUNT 8.43 K/uL (4.8-10.8)
[2017-07-20] MEDS ORDERED: MELA1TAB5 PO (20:41)
[2017-07-20] MEDS ORDERED: HYDR25CA PO (20:45)
[2017-07-20] MEDS ORDERED: LCTX PO (20:45)
[2017-07-20] MEDS ORDERED: IBUP-1451 PO (20:47)
[2017-07-20 20:56] LABS: ALT/SGPT 20 U/L (12-78); BLOOD UREA NITROGEN 16 mg/dl (7-18); BUN/CREATININE RATIO 20.3 (10-20); CALCIUM 9.2 mg/dl (8.5-10.1); CARBON DIOXIDE 30 mmol/L (21-32); CHLORIDE 103 mmol/L (98-107); GLUCOSE 107 mg/dl (70-99); SODIUM 137 mmol/L (136-145)
[2017-07-20 21:07] LABS: ALKALINE PHOSPHATASE 53 U/L (45-117); AST/SGOT 17 U/L (15-37)
[2017-07-20] MEDS ORDERED: ONDANSETRON INJ 2 MG/ML 2 ML VIAL IV STA (21:09)
--- NOTE | 2017-07-20 21:21 | EMERGENCY ROOM VISIT NOTE ---
History Report prepared by Param: Brandy Avila Under the Supervision of: Dr. Robert De La Cruz M.D. First contact with patient: 19:37 Chief Complaint: MENTAL HEALTH EVALUATION Stated Complaint: COMPLICATIONS DUE TO LYMES DISEASE History of Present Illness The patient is a 32 year old male who presents to the Emergency Room with complaints of persistent anxiety starting 2 months ago. The patient has been having anxiety issues which started after he was diagnosed with lyme disease 2 months ago. He has been on doxycycline which improves his symptoms. He was in the [facility] around 2 weeks ago. He was taken off the doxycycline during his stay. His anxiety worsened so he was discharged from the [facility]. He started doxycycline again 1 week ago. The patient is now having thoughts of hurting himself. He has been having panic attacks over the past week. He hopes to go back to the [facility]. His parents are concerned that the lyme disease is affecting his brain. He has lost weight and has not been eating. He denies any headache or neck pain. Source of History: patient, parent Onset: 2 months ago Position: other (global) Quality: other (anxiety) Timing: other (persistent) Associated Symptoms: No headache, No neck pain Note: Pt reports weight loss, decreased appetite. Review of Systems See HPI for pertinent positives & negatives. A total of 10 systems reviewed and were otherwise negative. Past Medical & Surgical Medical Problems: (1) Anxiety (2) Chronic pain (3) Depression (4) Lyme disease (5) Panic disorder (6) Suicidal ideation Family History Patient reports no known family medical history. Social History Smoking Status: Never Smoker Drug Use: none Marital Status: single Housing Status: lives with family Occupation Status: unemployed Current/Historical Medications Scheduled Doxycycline Hyclate (Vibramycin), 100 MG PO BID Lactobacillus Acidophilus (Lactinex), 1 TAB PO DAILY Lorazepam (Ativan), 0.5 MG PO BID Propranolol Hcl (Inderal), 10 MG PO TID Trazodone Hcl (Trazodone), 50-100 MG PO HS Scheduled PRN Hydroxyzine Pamoate (Vistaril), 25 MG PO DAILY PRN for Anxiety Ibuprofen Tab (Motrin), 800 MG PO Q8H PRN for Pain Melatonin (Kp Melatonin), 3-10 MG PO HS PRN for Sleep Allergies Coded Allergies: No Known Allergies (Unverified , 07/20/17) Physical Exam Vital Signs Date Time Temp Pulse Resp B/P (MAP) Pulse Ox O2 Delivery O2 Flow Rate FiO2 07/20/17 21:25 91 18 138/90 97 Room Air 07/20/17 19:32 36.5 103 18 138/97 98 Room Air Physical Exam GENERAL: Patient is a healthy-appearing well-nourished male HEAD: Normocephalic atraumatic EYES: Ocular movements intact pupils equal and react to light OROPHARYNX mucous membranes are moist no exudates present no erythema or edema present NECK: Supple no nuchal rigidity CHEST: Good equal expansion LUNGS: Clear and equal to auscultation CARDIAC: Normal S1 and S2 ABDOMEN: Soft nontender no guarding BACK: No CVA tenderness EXTREMITIES: No pain upon palpation normal muscle strength in all groups no clubbing cyanosis or edema NEURO: Patient is following commands and answering questions appropriately. Alert and oriented x3 Cranial Nerves 2-12 grossly intact Medical Decision & Procedures Laboratory Results 07/20/17 20:04 Red Blood Count 5.39, Mean Corpuscular Volume 88.3, Mean Corpuscular Hemoglobin 30.1, Mean Corpuscular Hemoglobin Concent 34.0, Mean Platelet Volume 9.6, Neutrophils (%) (Auto) 68.8, Lymphocytes (%) (Auto) 21.0, Monocytes (%) (Auto) 9.1, Eosinophils (%) (Auto) 0.7, Basophils (%) (Auto) 0.2, Neutrophils # (Auto) 5.79, Lymphocytes # (Auto) 1.77, Monocytes # (Auto) 0.77, Eosinophils # (Auto) 0.06, Basophils # (Auto) 0.02 07/20/17 20:04 Test 07/20/17 19:52 07/20/17 20:04 Urine Color YELLOW Urine Appearance CLEAR (CLEAR) Urine pH 5.5 (4.5-7.5) Urine Specific [place] 1.030 (1.000-1.030) Urine Protein NEG (NEG) Urine Glucose (UA) NEG (NEG) Urine Ketones NEG (NEG) Urine Occult Blood NEG (NEG) Urine Nitrite NEG (NEG) Urine Bilirubin NEG (NEG) Urine Urobilinogen NEG (NEG) Urine Leukocyte Esterase NEG (NEG) Urine Opiates Screen NEG (NEG) Urine Methadone, Qualitative NEG (NEG) Urine Barbiturates NEG (NEG) Urine Phencyclidine (PCP) Level NEG (NEG) Ur Amphetamine/Methamphetamine NEG (NEG) MDMA (Ecstasy) Screen NEG (NEG) Urine Benzodiazepines Screen NEG (NEG) Urine Cocaine Metabolite NEG (NEG) Urine Marijuana (THC) NEG (NEG) White Blood Count 8.43 K/uL (4.8-10.8) Red Blood Count 5.39 M/uL (4.7-6.1) Hemoglobin 16.2 g/dL (14.0-18.0) Hematocrit 47.6 % (42-52) Mean Corpuscular Volume 88.3 fL (80-100) Mean Corpuscular Hemoglobin 30.1 pg (25-34) Mean Corpuscular Hemoglobin Concent 34.0 g/dl (32-36) Platelet Count 247 K/uL (130-400) Mean Platelet Volume 9.6 fL (7.4-10.4) Neutrophils (%) (Auto) 68.8 % Lymphocytes (%) (Auto) 21.0 % Monocytes (%) (Auto) 9.1 % Eosinophils (%) (Auto) 0.7 % Basophils (%) (Auto) 0.2 % Neutrophils # (Auto) 5.79 K/uL (1.4-6.5) Lymphocytes # (Auto) 1.77 K/uL (1.2-3.4) Monocytes # (Auto) 0.77 K/uL (0.11-0.59) Eosinophils # (Auto) 0.06 K/uL (0-0.5) Basophils # (Auto) 0.02 K/uL (0-0.2) RDW Standard Deviation 41.8 fL (36.4-46.3) RDW Coefficient of Variation 13.1 % (11.5-14.5) Immature Granulocyte % (Auto) 0.2 % Immature Granulocyte # (Auto) 0.02 K/uL (0.00-0.02) Anion Gap 4.0 mmol/L (3-11) Est Creatinine Clear Calc Drug Dose 128.6 ml/min Estimated GFR () 137.0 Estimated GFR (Non- 118.2 BUN/Creatinine Ratio 20.3 (10-20) Calcium Level 9.2 mg/dl (8.5-10.1) Total Bilirubin 0.4 mg/dl (0.2-1) Direct Bilirubin < 0.1 mg/dl (0-0.2) Aspartate Amino Transf (AST/SGOT) 17 U/L (15-37) Alanine Aminotransferase (ALT/SGPT) 20 U/L (12-78) Alkaline Phosphatase 53 U/L (45-117) Total Protein 7.2 gm/dl (6.4-8.2) Albumin 4.2 gm/dl (3.4-5.0) Thyroid Stimulating Hormone (TSH) 2.000 uIu/ml (0.300-4.500) Ethyl Alcohol mg/dL < 3.0 mg/dl (0-3) Lyme Disease IgG Antibody POS (NEG) Labs reviewed by ED physician. Medications Administered Medications (Trade) Dose Ordered Sig/Jeny Route Start Time Stop Time Status Last Admin Dose Admin Ceftriaxone Sodium (Rocephin Inj) 2 gm NOW STAT IV 07/20/17 20:33 07/20/17 20:34 DC 07/20/17 21:16 2 GM Ondansetron HCl (Zofran Inj) 4 mg NOW STAT IV 07/20/17 21:09 07/20/17 21:10 DC 07/20/17 21:16 4 MG ED Course 2017: Past medical records reviewed. The patient was evaluated in room A5. A complete history and physical examination was performed. 2032: Rocephin Inj 2 gm IV. 2108: Zofran Inj 4 mg IV. Medical Decision Differential diagnosis: Etiologies such as mood disorder, infection, hypoglycemia, electrolyte abnormalities, cardiac sources, intracerebral event, toxicologic, neurologic, as well as others were entertained. This is a 32-year-old male who presents emergency department over concerns that his Lyme disease is causing him anxiety. I will note that the patient denies having a headache has no evidence of meningitis encephalitis on examination. I did recommend to the patient if he felt that the Lyme disease was causing his anxiety he probably should have a lumbar puncture however the patient refused this. In listening to the patient's story I suspect he is had Lyme first quite some time and is not until the diagnosis of Lyme was made that the patient began having anxiety. Based on this finding I do feel the patient is medically clear. He has been continuing on doxycycline. In addition the patient was given 2 g of Rocephin. He was discussed with case management and the patient will go to [facility]. Medication Reconcilliation Current Medication List: was personally reviewed by me Blood Pressure Screening Patient's blood pressure: Elevated blood pressure Blood pressure disposition: Referred to PCP Impression Primary Impression: Mood disorder Scribe Attestation The scribe's documentation has been prepared under my direction and personally reviewed by me in its entirety. I confirm that the note above accurately reflects all work, treatment, procedures, and medical decision making performed by me. Departure Information Dispostion Mental Health Acute Care Referrals RV. Pickering MD (PCP) Patient Instructions My [facility]
[2017-07-20 21:28] LABS: LYME DISEASE AB IGG POS (NEG); LYME DISEASE AB IGM POS (NEG)
[2017-07-21 03:44] VITALS: BP 131/87; PULSE 83; O2SAT 98
== END 2017-07-21 03:44 ==
LOC: C.EDB 19:31 → C.EDA 07-21 03:44
DX: F41.8 Other specified anxiety disorders (principal); A69.20 Lyme disease, unspecified; R03.0 Elevated blood-pressure reading, without diagnosis of hypertension; Z79.2 Long term (current) use of antibiotics; Z79.52 Long term (current) use of systemic steroids

== ENCOUNTER → 2017-08-10 | Outpatient (CLI) | payer OTHER ==
[~2017-08-10] MED LIST changes: -ATV5 PO; -DSY50 PO; +GADAVIST IV PRN; +HYDR25CA PO; +IBUP-1451 PO; +LCTX PO; +MELA1TAB5 PO; -MIRT30TA2 PO; -PRT/20 PO; -RANI150T3 PO; -ZLF/100 PO
--- NOTE | 2017-08-10 18:51 | DIAGNOSTIC IMAGING REPORT ---
MRI OF THE BRAIN WITHOUT AND WITH IV CONTRAST CLINICAL HISTORY: A69.20 Lyme [id number] COMPARISON STUDY: CT scan of the head dated 05/31/2017 TECHNIQUE: MRI of the brain was performed from the vertex to the skull base utilizing various T1 and T2 weighted sequences. Following the IV administration of 6.5 mL of Gadavist contrast, additional enhanced images were obtained. FINDINGS: Sagittal T1, axial diffusion, proton density and T2 weighted axial, coronal FLAIR, and pre and post axial T1-weighted images were acquired. These were supplemented with post gadolinium coronal T1 weighted images. No intra or extra-axial mass lesions are visualized. Axial diffusion-weighted images reveal no evidence of acute or subacute infarction. There is no evidence of ventricular dilatation. Proton density T2-weighted and FLAIR images reveal no significant intraparenchymal signal abnormalities. There are no abnormal flow voids. There is no evidence of pathologic intracranial enhancement. There is a right frontal mixed signal scalp lesion measuring 50 x 24 x 10 mm. This demonstrates mild postcontrast enhancement. There appear to be several flow voids present. This likely represents a vascular lesion. Clinical correlation is recommended. IMPRESSION: 1. 50 x 24 x 10 mm mixed signal intensity right frontal scalp lesion. Single characteristics raise the possibility of a vascular malformation. Clinical correlation is advocated, as this lesion should be palpable 2. Otherwise normal MRI the brain. No intracranial abnormalities identified Electronically signed by: Christopher Bobo M.D. 08/10/2017 6:50 PM Dictated Date/Time: 08/10/2017 6:44 PM
== END | disposition home or self-care (01) ==
LOC: C.MRI 17:21
PROVIDERS: ATTEND Physician Assistant
DX: A69.20 Lyme disease, unspecified (principal); G93.9 Disorder of brain, unspecified

== ENCOUNTER → 2017-10-19 | Outpatient (CLI) | payer OTHER ==
[~2017-10-19] MED LIST changes: -GADAVIST IV PRN
[2017-10-19 17:45] LABS: BASO % 0.3 %; BASO ABS # 0.02 K/uL (0-0.2); EOS % 0.7 %; EOS ABS # 0.05 K/uL (0-0.5); HEMATOCRIT 46.1 % (42-52); IG# 0.01 K/uL (0.00-0.02); LYMPH % 22.6 %; LYMPH ABS # 1.56 K/uL (1.2-3.4); MEAN CELL VOLUME 86.8 fL (80-100); MEAN CORPUSCULAR HEMOGLOBIN 30.1 pg (25-34); MEAN CORPUSCULAR HGB CONC 34.7 g/dl (32-36); MEAN PLATELET VOLUME 9.6 fL (7.4-10.4); MONO % 6.7 %; MONO ABS # 0.46 K/uL (0.11-0.59); NEUT % 69.6 %; NEUT ABS # 4.81 K/uL (1.4-6.5); PLATELET COUNT 245 K/uL (130-400); RED CELL DISTRIBUTION WIDTH CV 12.5 % (11.5-14.5); WHITE BLOOD COUNT 6.91 K/uL (4.8-10.8)
[2017-10-19 18:18] LABS: ALBUMIN 4.4 gm/dl (3.4-5.0); ALT/SGPT 23 U/L (12-78); AST/SGOT 14 U/L (15-37); BLOOD UREA NITROGEN 19 mg/dl (7-18); CALCIUM 9.4 mg/dl (8.5-10.1); CARBON DIOXIDE 27 mmol/L (21-32); CREATININE 0.93 mg/dl (0.60-1.40); GLUCOSE 93 mg/dl (70-99); POTASSIUM 4.1 mmol/L (3.5-5.1); SODIUM 137 mmol/L (136-145)
[2017-10-19 18:28] LABS: ALKALINE PHOSPHATASE 44 U/L (45-117); TOTAL PROTEIN 7.7 gm/dl (6.4-8.2)
== END | disposition home or self-care (01) ==
LOC: C.LAB1850 16:48
PROVIDERS: ATTEND Internal Medicine
DX: F41.9 Anxiety disorder, unspecified (principal); A69.20 Lyme disease, unspecified; F32.9 Major depressive disorder, single episode, unspecified; G47.00 Insomnia, unspecified; R11.0 Nausea

== ENCOUNTER → 2017-11-07 | Outpatient (CLI) | payer OTHER ==
[2017-11-07 16:32] LABS: BASO % 0.2 %; BASO ABS # 0.02 K/uL (0-0.2); EOS % 0.8 %; EOS ABS # 0.07 K/uL (0-0.5); HEMATOCRIT 52.3 % (42-52); HEMOGLOBIN 18.3 g/dL (14.0-18.0); IG# 0.02 K/uL (0.00-0.02); LYMPH % 14.5 %; LYMPH ABS # 1.27 K/uL (1.2-3.4); MEAN CELL VOLUME 84.9 fL (80-100); MEAN CORPUSCULAR HEMOGLOBIN 29.7 pg (25-34); MEAN PLATELET VOLUME 10.2 fL (7.4-10.4); MONO % 5.8 %; MONO ABS # 0.51 K/uL (0.11-0.59); NEUT % 78.5 %; NEUT ABS # 6.84 K/uL (1.4-6.5); PLATELET COUNT 283 K/uL (130-400); RED CELL DISTRIBUTION WIDTH CV 12.2 % (11.5-14.5); RED CELL DISTRIBUTION WIDTH SD 37.7 fL (36.4-46.3); WHITE BLOOD COUNT 8.73 K/uL (4.8-10.8)
[2017-11-07 17:06] LABS: ALBUMIN 4.6 gm/dl (3.4-5.0); ALKALINE PHOSPHATASE 48 U/L (45-117); ALT/SGPT 21 U/L (12-78); AST/SGOT 11 U/L (15-37); BLOOD UREA NITROGEN 16 mg/dl (7-18); CALCIUM 9.6 mg/dl (8.5-10.1); CARBON DIOXIDE 26 mmol/L (21-32); CREATININE 1.36 mg/dl (0.60-1.40); GLUCOSE 98 mg/dl (70-99); POTASSIUM 4.3 mmol/L (3.5-5.1); SODIUM 134 mmol/L (136-145)
[2017-11-07 17:16] LABS: TOTAL PROTEIN 7.8 gm/dl (6.4-8.2)
[2017-11-09 14:23] LABS: ANA SCREEN TC 249X NEGATIVE (NEGATIVE)
== END | disposition home or self-care (01) ==
LOC: C.LAB1850 15:25
PROVIDERS: ATTEND Internal Medicine
DX: R10.9 Unspecified abdominal pain (principal); F41.9 Anxiety disorder, unspecified; L80 Vitiligo

== ENCOUNTER → 2017-11-08 | Outpatient (CLI) | payer OTHER | END | disposition home or self-care (01) | LOC: C.LABSPEC 16:20 | PROVIDERS: ATTEND Internal Medicine | DX: R10.9 Unspecified abdominal pain (principal) ==

== ENCOUNTER → 2017-11-15 | Outpatient (CLI) | payer OTHER ==
[2017-11-15 16:43] LABS: BASO % 0.6 %; BASO ABS # 0.04 K/uL (0-0.2); EOS % 0.9 %; EOS ABS # 0.06 K/uL (0-0.5); HEMATOCRIT 47.7 % (42-52); HEMOGLOBIN 16.3 g/dL (14.0-18.0); IG# 0.01 K/uL (0.00-0.02); LYMPH % 20.9 %; LYMPH ABS # 1.32 K/uL (1.2-3.4); MEAN CELL VOLUME 86.1 fL (80-100); MEAN CORPUSCULAR HEMOGLOBIN 29.4 pg (25-34); MEAN CORPUSCULAR HGB CONC 34.2 g/dl (32-36); MONO % 6.5 %; MONO ABS # 0.41 K/uL (0.11-0.59); NEUT % 70.9 %; NEUT ABS # 4.49 K/uL (1.4-6.5); PLATELET COUNT 283 K/uL (130-400); RED CELL DISTRIBUTION WIDTH CV 12.3 % (11.5-14.5); RED CELL DISTRIBUTION WIDTH SD 39.4 fL (36.4-46.3); WHITE BLOOD COUNT 6.33 K/uL (4.8-10.8)
[2017-11-15 16:59] LABS: ALBUMIN 4.2 gm/dl (3.4-5.0); ALT/SGPT 21 U/L (12-78); AST/SGOT 11 U/L (15-37); BLOOD UREA NITROGEN 16 mg/dl (7-18); CARBON DIOXIDE 29 mmol/L (21-32); CREATININE 0.93 mg/dl (0.60-1.40); GLUCOSE 92 mg/dl (70-99); LIPASE 190 U/L (73-393); POTASSIUM 4.3 mmol/L (3.5-5.1); SODIUM 137 mmol/L (136-145)
[2017-11-15 17:02] LABS: ALKALINE PHOSPHATASE 59 U/L (45-117); TOTAL PROTEIN 7.5 gm/dl (6.4-8.2)
== END | disposition home or self-care (01) ==
LOC: C.LAB1850 15:07
PROVIDERS: ATTEND Internal Medicine
DX: R10.9 Unspecified abdominal pain (principal)

== ENCOUNTER → 2017-11-17 | Outpatient (CLI) | payer OTHER | END | disposition home or self-care (01) | LOC: C.LAB1850 11:06 | PROVIDERS: ATTEND Internal Medicine Infectious Disease | DX: E86.0 Dehydration (principal); R19.8 Other specified symptoms and signs involving the digestive system and abdomen ==

== ENCOUNTER 2017-12-18 11:37 | Emergency (ER) | payer OTHER ==
[~2017-12-18] VITALS: Ht 180.3 cm; Wt 67.7 kg
[2017-12-18 11:40] VITALS: TEMP 36.7; Ht 180.3 cm; Wt 67.7 kg
[2017-12-18] MEDS ORDERED: NITR1OIN RE (12:54)
--- NOTE | 2017-12-18 12:58 | EMERGENCY ROOM VISIT NOTE ---
ED Visit Note First contact with patient: 11:52 CHIEF COMPLAINT: Rectal pain, lump HISTORY OF PRESENT ILLNESS: This 32-year-old male patient presents to the emergency department, ambulatory, complaining of a lump projecting from the rectum with severe rectal pain. The patient states the pain began yesterday, and is worse with moving his bowels. He states the pain has worsened over the past 24 hours. He denies any constipation or blood in his stool. He does report significant pain with bowel movements. He denies recent illness including nausea, vomiting, constipation. He denies any fever. He states this morning he noticed a protrusion from the rectum and became concerned for his intestine protruding. The patient denies any history of hemorrhoids. He does report a history of "GI issues", and states he is currently being worked up for a gastric ulcer/gastritis. He has not seen a GI doctor or general surgeon regarding any of his concerns. He denies any urinary symptoms. He denies any abdominal or back pain. He denies any injury. He is sexually active, but denies any anal penetration. REVIEW OF SYSTEMS: A 10 system review of systems was performed with positives and pertinent negatives listed in the history of present illness. All other systems were reviewed and are negative. ALLERGIES: None MEDICATIONS: Ativan, lactobacillus acidophilus, probiotics PMH: Lyme disease, recommend spotted fever, Rickettsia, asthma, "GI issues" SOCIAL HISTORY: The patient is locally with family. He denies drug, alcohol, tobacco use. PHYSICAL EXAM: VITALS: Vitals are noted on the nurse's note and reviewed by myself. Vital signs stable. GENERAL: This is a 32-year-old white male, in no acute distress, nondiaphoretic , well-developed well-nourished. HEART: Regular rate and rhythm. No murmurs, gallops, or rubs noted. LUNGS: CTA bilaterally. No wheezes, rhonchi, rales. ABDOMEN: Positive bowel sounds all 4 quadrants. Normal tympanic percussion. Soft, nontender to palpation. No masses, guarding noted on palpation. Rectal examination reveals a thrombosed hemorrhoid at on the right lateral aspect of the anus. This is very tender to palpation and purple in color. There is no active bleeding. Hemoccult testing performed and was negative. EMERGENCY DEPARTMENT COURSE: The patient was seen and evaluated as above. His symptoms are consistent with a thrombosed hemorrhoid. I did discuss options for management with the patient at bedside. I did recommend incision and drainage of the thrombosed hemorrhoid. The patient declined, and prefers to follow-up with the general surgeon this week. I do feel that this is reasonable , and discussed the potential benefits versus risks associated with not performing the procedure at this time. The patient verbalized understanding. The patient will be started on Rectiv to help with the spasms and pain. I encouraged him to use sitz bath and warm soaks to help with his symptoms. The patient was encouraged to return immediately to the emergency department for worsening symptoms. All questions answered to patient and his mother satisfaction. Discharge instructions reviewed, the patient was discharged home in good condition. I attest that I have personally reviewed the patient's current medication list. Patient was found to have normal blood pressure on screening and does not require follow-up. Differential diagnosis includes GI bleed, hemorrhoid, thrombosed hemorrhoid, anal fissure, constipation, malignancy, and others DIAGNOSIS: Thrombosed external hemorrhoid The chart was completed utilizing [employer] Speech voice recognition software. Grammatical errors, random word insertions, pronoun errors, and incomplete sentences are an occasional consequence of this system due to software limitations, ambient noise, and hardware issues. Any formal questions or concerns about the content, text, or information contained within the body of this dictation should be directly addressed to the provider for clarification. Current/Historical Medications Scheduled Lactobacillus Acidophilus (Lactinex), 1 TAB PO DAILY Lorazepam (Ativan), 0.25 MG PO DAILY Scheduled PRN Nitroglycerin (Intra-Anal) (Rectiv), 1 INCH RE Q12 PRN for rectal spasms Allergies Coded Allergies: No Known Allergies (Unverified , 12/18/17) Vital Signs Date Time Temp Pulse Resp B/P (MAP) Pulse Ox O2 Delivery O2 Flow Rate FiO2 12/18/17 13:23 94 16 123/89 96 12/18/17 12:26 89 16 121/83 97 Room Air 12/18/17 11:40 36.7 91 18 132/86 100 Room Air Departure Information Impression Primary Impression: Hemorrhoids, external, thrombosed Dispostion Home / Self-Care Condition GOOD Prescriptions Nitroglycerin (Intra-Anal) (RECTIV) 0.4 % Oin 1 INCH RE Q12 Y for rectal spasms for 7 Days, #1 TUBE Prov: Lizzette Brizuela, ADRIANA 12/18/17 Referrals RV. Pickering MD (PCP) Saul Clemons M.D. Patient Instructions Hemorrhoids Thrombosed, My [facility] Additional Instructions You were seen in the emergency department today for a thrombosed external hemorrhoid. I did offer to incise this to help alleviate pain. As discussed, finalized care would include excision of the hemorrhoid. This should be done by a general surgeon. You have been provided with the contact information for the general surgeon, Dr. Clemons. Please contact his office tomorrow morning to establish follow-up. Use Rectiv topical ointment up to twice daily for anal spasms. This should help with some of your pain. Ibuprofen(Motrin, Advil) may be used for fever or pain. Use 600mg every six hours as needed. Take with food. Avoid using more than 2400mg in a 24 hour period. Do not use 2400mg per day for more than three consecutive days without physician direction. Prolonged inappropriate use can lead to stomach upset or ulcers. (AND/OR) Acetaminophen(Tylenol) may be used for fever or pain. Use 1000mg every six hours as needed. Avoid using more than 3000mg in a 24 hour period. Use sitz bath and warm compresses to help with pain and swelling. You may want to consider a stool softener, high-fiber diet, and plenty of water to help soften the stool and make bowel movements less painful. Follow-up with the general surgeon/your PCP for worsening symptoms or recurrence. Return immediately to the emergency department for significantly worsening pain , swelling, inability to have a bowel movement, redness, fever, chills, or other concerning symptoms.
[2017-12-18 13:23] VITALS: BP 123/89; PULSE 94; O2SAT 96
[2017-12-19] MEDS ORDERED: MISCCAP80 PO ×2 (15:26)
== END 2017-12-18 13:23 | disposition home or self-care (01) ==
LOC: C.EDB 11:38
DX: K64.5 Perianal venous thrombosis (principal); J45.909 Unspecified asthma, uncomplicated; Z79.899 Other long term (current) drug therapy

== ENCOUNTER 2017-12-19 14:11 | Emergency (ER) | payer OTHER ==
[~2017-12-19] VITALS: Ht 180.3 cm; Wt 68.0 kg
[~2017-12-19 14:11] MED LIST changes: -DOXY100C2 PO; -HYDR25CA PO; -IBUP-1451 PO; -MELA1TAB5 PO; +NITR1OIN RE; -PROP10TA7 PO; -TRAZ100T29 PO
[2017-12-19 14:18] VITALS: Ht 180.3 cm; Wt 68.0 kg
--- NOTE | 2017-12-19 15:01 | EMERGENCY ROOM VISIT NOTE ---
ED Visit Note First contact with patient: 14:31 Resident Physician Supervision Note: I was present with Dr. Carson during the history and exam. I discussed the case with the resident and agree with the findings and plan as documented in the note. Any exceptions or clarifications are listed here: Documented By: Ulysses Atkins
--- NOTE | 2017-12-19 15:13 | EMERGENCY ROOM VISIT NOTE ---
History First contact with patient: 14:31 Chief Complaint: RECTAL BLEEDING Stated Complaint: BOWEL PAIN Nursing Triage Summary: pt reports that he was seen here yesterday and diagnosed with hemorrhoids. pt was to follow up but appointment is taking too long. returned to have hemorrhoids lanced. History of Present Illness The patient is a 32 year old male who presents to the Emergency Room with complaints of rectal pain. He was here yesterday for rectal pain and an external hemorrhoid. He was given topical nitroglycerin to use but he has not picked it up and has not used it yet. His rectal pain started on Tuesday afternoon and became worse yesterday. He says it is worse when witting and describes the pain as a 5/10 in severity. He notes that he had blood in his stool 1 month ago but has not had any blood when wiping. He has chronic abdominal pain that he is getting worked up as an outpatient. He has also felt nauseated. He denies any diarrhea, constipation, vomiting, weight loss, decrease appetite, fatigue. He notes he has been diagnosed with Lyme disease, RMSF and Typhoid as an outpatient. Review of Systems CONSTITUTIONAL: No fever, chills, sweats or night sweats. No recent infections. No weight loss or weight gain. NEUROLOGIC: No headaches, dizziness or syncopal episodes. HEENT: No hearing or visual changes. No sinus or nasal issues. No mouth sores, thrush or oral lesions. CARDIOVASCULAR: No chest pain or palpitations. RESPIRATORY: No SOB, dyspnea, cough or hemoptysis. GASTROINTESTINAL: No nausea, vomiting, diarrhea, constipation, reflux, melena or hematochezia. Chronic abdominal pain GENITOURINARY: No dysuria, frequency, urgency, incontinence or hematuria. SKIN: No rashes or skin lesions. No hair loss or nail changes. HEMATOLOGIC: No bleeding or abnormal bruising Past Medical/Surgical History Medical Problems: (1) Anxiety (2) Chronic pain (3) Depression (4) Lyme disease (5) Panic disorder (6) Suicidal ideation RMSF, Typhoid Family History Patient reports no known family medical history. Non contributory Social History Smoking Status: Never Smoker Alcohol Use: none Drug Use: none Marital Status: single Housing Status: lives with family Occupation Status: unemployed Current/Historical Medications Scheduled Probiotic Product (Probiotic), 1 CAP PO DAILY Scheduled PRN Lorazepam (Ativan), 0.25 MG PO DAILY PRN for Anxiety Nitroglycerin (Intra-Anal) (Rectiv), 1 INCH RE Q12 PRN for rectal spasms Probiotic Product (Probiotic), 1 CAP PO BID PRN for Physical Exam Vital Signs Date Time Temp Pulse Resp B/P (MAP) Pulse Ox O2 Delivery O2 Flow Rate FiO2 12/19/17 14:18 36.3 99 16 126/83 95 Room Air Physical Exam HEENT: Head - normocephalic and atraumatic. Pupils are equal, round, and reactive to light. Extraocular eye muscles are intact and sclera are anicteric. . Nose - moist nasal mucosa without discharge. Mouth - moist buccal mucosa. Oropharynx is nonerythematous and there is no tonsillar exudate or edema noted. Neck: Supple; no JVD, nuchal rigidity, cervical lymphadenopathy, or auscultated bruits. Heart: Regular rate and rhythm. There is a normal S1 and S2 with no murmurs, clicks, or gallops appreciated. Lungs: Clear to auscultation bilaterally with no wheezes, rales, or rhonchi. Abdomen: Soft, completely nontender, nondistended, with good bowel sounds. There are no palpable pulsatile masses or hepatosplenomegaly. There is no guarding, rigidity, or rebound noted. Rectal: 3 oclock partially thrombosed hemorrhoid (pink in colour), non tender to palpation Extremities: No evidence of cyanosis, clubbing, or edema. There are easily palpable peripheral pulses. Medical Decision & Procedures ED Course 1445: The patient was assessed and examined 1450: I spoke to Dr. Atkins and discussed the plan 1500: Spoke to the General Surgeon PA guide excursion and discussed the case with her. She said the patient could either follow up on Tuesday with surgeon or have the hemorrhoid excised in the ED. 1515: Discussed the case with the patient and it was decided to continue with his appointment with the general surgeon on Tuesday for further management of his external hemorrhoid. He was agreeable to this plan. Medical Decision Patient here with external hemorrhoid. We discussed the option of excision here versus waiting for his appointment with the general surgeon on Tuesday. It was decided that he was going to wait until Tuesday and continue with conservative measures at home which include sitz baths, and topical treatment. Impression Primary Impression: External hemorrhoid Departure Information Referrals RV. Pickering MD (PCP) Patient Instructions [facility]
[2017-12-19] MEDS ORDERED: MISCCAP80 PO ×2 (15:26)
[2017-12-19 15:53] VITALS: BP 126/83; PULSE 85; TEMP 36.3; O2SAT 97
== END 2017-12-19 15:53 | disposition home or self-care (01) ==
LOC: C.EDB 14:12
DX: K64.5 Perianal venous thrombosis (principal); R10.9 Unspecified abdominal pain; G89.29 Other chronic pain